=== PATIENT | female | born 1970 | race Caucasian/White ===

== ENCOUNTER 2018-04-07 18:57 | Inpatient (IN) | payer MEDICARE ==
[~2018-04-07] VITALS: Ht 172.7 cm; Wt 137.9 kg
[2018-04-07 19:57] LABS: BASOPHILS % (AUTO) 0.9 % (0.0-2.0); EOSINOPHILS % (AUTO) 1.1 % (0.0-3.0); HEMATOCRIT 39.1 % (37.0-47.0); HEMOGLOBIN 12.8 G/DL (12.0-16.0); LYMPHOCYTES % (AUTO) 30.8 % (20.0-45.0); MEAN CORPUSCULAR VOLUME 79 FL (80-99); MONOCYTES % (AUTO) 7.7 % (1.0-10.0); NEUTROPHILS % (AUTO) 59.5 % (45.0-75.0); PLATELET COUNT 310 K/UL (150-450); RED BLOOD COUNT 4.97 M/UL (4.20-5.40); RED CELL DISTRIBUTION WIDTH 14.2 % (11.6-14.8); WHITE BLOOD COUNT 12.5 K/UL (4.8-10.8)
[2018-04-07 20:22] LABS: ALANINE AMINOTRANSFERASE 51 U/L (12-78); ALBUMIN 3.3 G/DL (3.4-5.0); ALBUMIN/GLOBULIN RATIO 0.8 (1.0-2.7); ALKALINE PHOSPHATASE 74 U/L (46-116); ANION GAP 10 mmol/L (5-15); ASPARTATE AMINO TRANSFERASE 26 U/L (15-37); BILIRUBIN,TOTAL 0.4 MG/DL (0.2-1.0); BLOOD UREA NITROGEN 8 mg/dL (7-18); CARBON DIOXIDE 25 MMOL/L (21-32); CHLORIDE 104 MMOL/L (98-107); CREATININE 0.7 MG/DL (0.55-1.30); POTASSIUM 3.7 MMOL/L (3.5-5.1); SODIUM 139 MMOL/L (136-145)
[2018-04-07] MEDS ORDERED: Morphine Sulfate 4mg/ml Inj IVP ONE (20:30)
[2018-04-07] MEDS ORDERED: Pantoprazole Inj IVP ONE (20:30)
[2018-04-07] MEDS ORDERED: HydrOXYzine tab 25 MG TAB ORAL ONE (21:15)
[2018-04-07 21:23] LABS: APPEARANCE,URINE CLOUDY; BILIRUBIN, URINE NEGATIVE (NEGATIVE); GLUCOSE, URINE (UA) NEGATIVE (NEGATIVE); KETONES,URINE 1+ (NEGATIVE); LEUKOCYTE ESTERASE ,URINE 3+ (NEGATIVE); NITRITE,URINE NEGATIVE (NEGATIVE); PH,URINE 5 (4.5-8.0); PROTEIN,URINE 3+ (NEGATIVE); UROBILINOGEN,URINE NORMAL MG/DL (0.0-1.0)
[2018-04-07] MEDS ORDERED: DiphenhydrAMINE 50mg/ml Inj IVP ONE (21:30)
[2018-04-07 21:35] LABS: COLOR,URINE YELLOW
[2018-04-07 23:33] VITALS: BP 108/61
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
[2018-04-07] MEDS ORDERED: CITALOPRAM HBR10 M1 ORAL (23:38)
[2018-04-07] MEDS ORDERED: AMBIEN5 MG ORAL (23:38)
[2018-04-07] MEDS ORDERED: BUSPIRONE HCL5 M1 ORAL (23:38)
[2018-04-07] MEDS ORDERED: BIOTIN5 M2 PO (23:38)
[2018-04-07] MEDS ORDERED: TRUVADA 200 MG1 EAC1 ORAL (23:38)
[2018-04-07] MEDS ORDERED: cefTRIAXone 1 GM in D5W 55 ML IVPB ONE (23:45)
[2018-04-07] MEDS ORDERED: DiphenhydrAMINE 50mg/ml Inj ONE (23:45)
[2018-04-08] VITALS: BP 121/83
[2018-04-08] MEDS: D5 1/2NS w/KCl 20mEq 1,000 ML IV SCH ×3 (01:45→21:47)
[2018-04-08] MEDS ORDERED: DiphenhydrAMINE 50mg/ml Inj IVP PRN ×2 (02:00→12:45)
[2018-04-08] MEDS ORDERED: Zosyn 3.375gm/50ml Premix 50 ML IVPB SCH ×2 (03:00→08:00)
[2018-04-08] MEDS ORDERED: Zosyn 3.375gm inj ONE (03:07)
[2018-04-08] MEDS ORDERED: D5 1/2NS w/KCl 20mEq 1,000 ML IV ONE (03:14)
[2018-04-08] MEDS ORDERED: Vancomycin 1.5gm/D5W 250ml 250 ML IVPB SCH ×2 (03:30→09:00)
[2018-04-08 08:00] VITALS: BP 123/80
[2018-04-08] MEDS ORDERED: Piperacillin/Tazobactam 3.375 GM in D5W 110 ML IVPB SCH ×2 (08:00→14:00)
[2018-04-08] MEDS: Citalopram Hydrobromide 10mg Tab ORAL SCH (08:24)
[2018-04-08] MEDS: BusPIRone 5mg Tab ORAL SCH ×2 (08:24→17:41)
[2018-04-08] MEDS: Heparin 5000 units/ml inj SUBQ SCH ×3 (08:28→21:26)
[2018-04-08 08:32] LABS: BASOPHILS % (AUTO) 1.3 % (0.0-2.0); EOSINOPHILS % (AUTO) 2.5 % (0.0-3.0); HEMATOCRIT 40.6 % (37.0-47.0); HEMOGLOBIN 13.1 G/DL (12.0-16.0); LYMPHOCYTES % (AUTO) 30.5 % (20.0-45.0); MEAN CORPUSCULAR VOLUME 81 FL (80-99); MONOCYTES % (AUTO) 7.7 % (1.0-10.0); NEUTROPHILS % (AUTO) 57.9 % (45.0-75.0); PLATELET COUNT 283 K/UL (150-450); RED BLOOD COUNT 5.01 M/UL (4.20-5.40); RED CELL DISTRIBUTION WIDTH 14.2 % (11.6-14.8); WHITE BLOOD COUNT 11.7 K/UL (4.8-10.8)
[2018-04-08] MEDS: Morphine Sulfate 4mg/ml Inj IVP PRN ×2 (08:53→22:45)
[2018-04-08 08:56] LABS: ANION GAP 10 mmol/L (5-15); BLOOD UREA NITROGEN 7 mg/dL (7-18); CALCIUM 9.8 MG/DL (8.5-10.1); CARBON DIOXIDE 24 MMOL/L (21-32); CHLORIDE 106 MMOL/L (98-107); CREATININE 0.6 MG/DL (0.55-1.30); POTASSIUM 3.8 MMOL/L (3.5-5.1); SODIUM 140 MMOL/L (136-145)
[2018-04-08] MEDS ORDERED: ZOSYN MISC SCH (09:00)
--- NOTE | 2018-04-08 09:46 | History & Physical ---
History and Physical History & Physicial DICT # [id number] Jin Ferreira MD Apr 08, 2018 09:46
[2018-04-08 12:00] VITALS: BP 125/86
--- NOTE | 2018-04-08 12:55 | Consultation ---
History of Present Illness General Date patient seen: Apr 08, 2018 Chief Complaint: Abdominal Pain Present Illness HPI 47 year old female with multiple medical comorbidities including HIV, morbid obesity, s/p lap band removal and sleeve gastrectomy which was complicated by leak and s/p stent placemet and lap abdominal washout, migration of stent, persistent leak who has been in rehab facility anticipating next surgery for stent removal. Recently transferred form rehab [place] [facility] [place] of abdominal pain. in ED noted to have leukocytosis, possible purulent drain output, and abdominal pain. unfortunately given her size unable to perform CT scan. Surgery called to evaluate for abdominal pain. patient seen, chart reviewed, patient examined. states she feels okay now. subjective fevers. no n/v. states has not had oral diet for some time now. is patiently anticipating next surgery. Allergies: Coded Allergies: GABAPENTIN (Verified Allergy, Unknown, 04/07/18) NAPROXEN (Verified Allergy, Unknown, 04/07/18) SULFA (SULFONAMIDE ANTIBIOTICS) (Verified Allergy, Unknown, 04/07/18) SULFAMETHOXAZOLE (Verified Allergy, Unknown, 04/07/18) TRIMETHOPRIM (Verified Allergy, Unknown, 04/07/18) Medication History Scheduled Buspirone Hcl* (Buspirone Hcl*), 5 MG ORAL TWICE A DAY, (Reported) Citalopram Hydrobromide* (Citalopram Hbr*), 10 MG ORAL DAILY, (Reported) Emtricitabine/Tenofovir 200-300MG* (Truvada 200-300MG*), 1 TAB ORAL DAILY, ( Reported) Scheduled PRN Zolpidem Tartrate* (Ambien*), 5 MG ORAL BEDTIME PRN for Insomnia, (Reported) Miscellaneous Medications Biotin (Biotin), 5 MG PO, (Reported) Patient History History Provided By: Patient, Medical Record, PMD Healthcare decision maker Resuscitation status Advanced Directive on File Past Medical/Surgical History Past Medical/Surgical History: (1) Hyperthermia (2) Abdominal pain Review of Systems All Other Systems: negative except mentioned in HPI Physical Exam General Appearance: no apparent distress Lines, tubes and drains: PICC HEENT: mucous membranes moist, PERRL Neck: normal inspection Respiratory/Chest: normal breath sounds, no respiratory distress, no accessory muscle use Cardiovascular/Chest: normal rate Abdomen: normal bowel sounds, soft, other - obese, prior surgical scars healing , g tube, two víctor drains. Extremities: normal inspection Neurologic: alert, oriented x 3 Last 24 Hour Vital Signs Date Time Temp Pulse Resp B/P (MAP) Pulse Ox O2 Delivery O2 Flow Rate FiO2 04/08/18 09:20 97.7 04/08/18 08:53 97.7 04/08/18 08:00 98.7 99 20 123/80 (94) 97 98.7 04/08/18 00:45 Room Air 04/08/18 00:37 97.7 98 17 108/61 98 Room Air 97.7 04/08/18 00:00 99.2 105 19 121/83 (96) 97 99.2 04/07/18 23:33 97.7 98 17 108/61 98 Room Air 97.7 04/07/18 20:54 99.9 04/07/18 20:24 99.9 04/07/18 18:44 99.9 122 18 104/73 94 Room Air 99.9 Intake and Output 04/07/18 04/08/18 19:00 07:00 Intake Total 1000 ml Output Total 75 ml Balance 925 ml Intake IV Total 1000 ml Output Urine Total 75 ml # Voids 1 Laboratory Tests Test 04/07/18 19:25 04/07/18 21:00 04/08/18 07:25 White Blood Count 12.5 K/UL (4.8-10.8) H 11.7 K/UL (4.8-10.8) H Red Blood Count 4.97 M/UL (4.20-5.40) 5.01 M/UL (4.20-5.40) Hemoglobin 12.8 G/DL (12.0-16.0) 13.1 G/DL (12.0-16.0) Hematocrit 39.1 % (37.0-47.0) 40.6 % (37.0-47.0) Mean Corpuscular Volume 79 FL (80-99) L 81 FL (80-99) Mean Corpuscular Hemoglobin 25.8 PG (27.0-31.0) L 26.1 PG (27.0-31.0) L Mean Corpuscular Hemoglobin Concent 32.8 G/DL (32.0-36.0) 32.3 G/DL (32.0-36.0) Red Cell Distribution Width 14.2 % (11.6-14.8) 14.2 % (11.6-14.8) Platelet Count 310 K/UL (150-450) 283 K/UL (150-450) Mean Platelet Volume 6.1 FL (6.5-10.1) L 6.1 FL (6.5-10.1) L Neutrophils (%) (Auto) 59.5 % (45.0-75.0) 57.9 % (45.0-75.0) Lymphocytes (%) (Auto) 30.8 % (20.0-45.0) 30.5 % (20.0-45.0) Monocytes (%) (Auto) 7.7 % (1.0-10.0) 7.7 % (1.0-10.0) Eosinophils (%) (Auto) 1.1 % (0.0-3.0) 2.5 % (0.0-3.0) Basophils (%) (Auto) 0.9 % (0.0-2.0) 1.3 % (0.0-2.0) Prothrombin Time 10.5 SEC (9.30-11.50) Prothromb Time International Ratio 1.0 (0.9-1.1) Activated Partial Thromboplast Time 19 SEC (23-33) L Sodium Level 139 MMOL/L (136-145) 140 MMOL/L (136-145) Potassium Level 3.7 MMOL/L (3.5-5.1) 3.8 MMOL/L (3.5-5.1) Chloride Level 104 MMOL/L (98-107) 106 MMOL/L (98-107) Carbon Dioxide Level 25 MMOL/L (21-32) 24 MMOL/L (21-32) Anion Gap 10 mmol/L (5-15) 10 mmol/L (5-15) Blood Urea Nitrogen 8 mg/dL (7-18) 7 mg/dL (7-18) Creatinine 0.7 MG/DL (0.55-1.30) 0.6 MG/DL (0.55-1.30) Estimat Glomerular Filtration Rate > 60 mL/min (>60) > 60 mL/min (>60) Glucose Level 138 MG/DL (74-106) H 141 MG/DL (74-106) H Calcium Level 10.0 MG/DL (8.5-10.1) 9.8 MG/DL (8.5-10.1) Total Bilirubin 0.4 MG/DL (0.2-1.0) Aspartate Amino Transf (AST/SGOT) 26 U/L (15-37) Alanine Aminotransferase (ALT/SGPT) 51 U/L (12-78) Alkaline Phosphatase 74 U/L (46-116) Troponin I 0.000 ng/mL (0.000-0.056) Total Protein 7.7 G/DL (6.4-8.2) Albumin 3.3 G/DL (3.4-5.0) L Globulin 4.4 g/dL Albumin/Globulin Ratio 0.8 (1.0-2.7) L Lipase 258 U/L (73-393) Urine Color Yellow Urine Appearance Cloudy Urine pH 5 (4.5-8.0) Urine Specific [place] 1.020 (1.005-1.035) Urine Protein 3+ (NEGATIVE) H Urine Glucose (UA) Negative (NEGATIVE) Urine Ketones 1+ (NEGATIVE) H Urine Occult Blood 1+ (NEGATIVE) H Urine Nitrite Negative (NEGATIVE) Urine Bilirubin Negative (NEGATIVE) Urine Urobilinogen Normal MG/DL (0.0-1.0) Urine Leukocyte Esterase 3+ (NEGATIVE) H Urine RBC 2-4 /HPF (0 - 2) H Urine WBC 10-15 /HPF (0 - 2) H Urine Squamous Epithelial Cells Many /LPF (NONE/OCC) H Urine Calcium Oxalate Crystals Many /LPF (NONE) Urine Bacteria Moderate /HPF (NONE) H Height (Feet): 5 Height (Inches): 8.00 Weight (Pounds): 305 Medications Current Medications Medications (Trade) Dose Ordered Sig/Elizabet Route PRN Reason Start Time Stop Time Status Last Admin Dose Admin Acetaminophen (Tylenol) 650 mg Q6H PRN ORAL Mild Pain/Temp > 100.5 04/08/18 01:45 05/08/18 01:44 Buspirone HCl (Buspar) 5 mg BID ORAL 04/08/18 09:00 05/08/18 08:59 04/08/18 08:24 Citalopram Hydrobromide (celeXA) 10 mg DAILY ORAL 04/08/18 09:00 05/08/18 08:59 04/08/18 08:24 Dextrose/ Electrolytes 1,000 ml @ 100 mls/hr Q10H IV 04/08/18 01:45 05/08/18 01:44 04/08/18 08:24 Diphenhydramine HCl (Benadryl) 25 mg Q4H PRN IVP Itching 04/08/18 12:45 05/08/18 12:44 Emtricitabine/ Tenofovir (Truvada 200/ 300mg) 1 tab DAILY ORAL 04/08/18 09:00 05/08/18 08:59 04/08/18 08:24 Heparin Sodium (Porcine) (Heparin 5000 units/ml) 5,000 units EVERY 12 HOURS SUBQ 04/08/18 09:00 05/08/18 08:59 04/08/18 08:28 Lopinavir/ Ritonavir (Kaletra) 2 tab Q12HR ORAL 04/08/18 21:00 05/08/18 20:59 UNV Morphine Sulfate (Morphine Sulfate) 1 mg Q4H PRN IVP For mild pain 1-3 04/08/18 01:45 04/15/18 01:44 Morphine Sulfate (Morphine Sulfate) 2 mg Q4H PRN IVP For moderate pain 4-6 04/08/18 01:45 04/15/18 01:44 Morphine Sulfate (Morphine Sulfate) 4 mg Q4H PRN IVP For Severe Pain 7-04/08/18 01:45 04/15/18 01:44 04/08/18 08:53 Multivitamins (Multivitamins) 1 tab DAILY ORAL 04/08/18 09:00 05/08/18 08:59 04/08/18 08:24 Non-Formulary Medication (Non-Formulary Med) 1 ea DAILY ORAL 04/08/18 09:00 05/08/18 08:59 UNV Ondansetron HCl (Zofran) 4 mg EVERY 4 HOURS PRN IVP Nausea & Vomiting 04/08/18 01:45 05/08/18 01:44 04/08/18 08:53 Piperacillin Sod/ Tazobactam Sod 3.375 gm/Dextrose 110 ml @ 27.5 mls/hr Q8H IVPB 04/08/18 14:00 04/15/18 13:59 Vancomycin HCl (Vanco rx to dose) 1 ea DAILY MISC 04/08/18 09:00 05/08/18 08:59 Vancomycin HCl/ Dextrose 250 ml @ 166.667 mls/hr Q8H IVPB 04/08/18 09:00 04/13/18 08:59 04/08/18 10:35 Zolpidem Tartrate (Ambien) 5 mg HSPRN PRN ORAL Insomnia 04/08/18 01:45 04/15/18 01:44 Assessment/Plan Problem List: (1) Abdominal pain Assessment & Plan: 47M complicated surgical history. currently in recovery after prior surgery. prior lap band with removal, sleeve gastrectomy complicated by leak and still with possible leak. has stents in place which from report have migrated. is planned to have surgery in april 2018 for stent removal. currently doing well. mild leukocytosis improving. UTI. abd exam without peritonitis or significant abnormality. medial drain with possible tube feeds vs purulent output. lateral drain without minimal output feeding tube in place -okay to resume tube feeds -okay to resume prior meds crushed and given through g tube. -pt/ot -iv abx -records reviewed. will reach out to her primary surgeon to discuss care. thank you for this consultation. will follow with recs no acute surgical intervention planned. ICD Codes: R10.9 - Unspecified abdominal pain SNOMED: [id number] Qualifiers: Qualified Codes: R10.84 - Generalized abdominal pain Status: unchanged Blu Hinojosa Apr 08, 2018 12:55
[2018-04-08] MEDS ORDERED: DiphenhydrAMINE 50mg/ml Inj IVP STA (14:10)
[2018-04-08 16:00] VITALS: BP 118/82
--- NOTE | 2018-04-08 17:32 | Infectious Diseases Prog Note ---
Assessment/Plan Assessment/Plan Full consult dictated: A) 1) uti, leukocytosis, fevers, ? sepsis, ? abdominal wall wound drainage 2) pmh and psh noted 3) HIV, ? cd4/viral load 4) allergies - ? vancomycin or zosyn, sulfa, naproxen, gabapentin P) 1) cefepime and flagyl 2) check urine culture, labs, cd4 3) surgery f/u, imaging per surgery 4) anti-retrovirals - kaletra and truvada 5) thank you Subjective Allergies: Coded Allergies: GABAPENTIN (Verified Allergy, Unknown, 04/07/18) NAPROXEN (Verified Allergy, Unknown, 04/07/18) SULFA (SULFONAMIDE ANTIBIOTICS) (Verified Allergy, Unknown, 04/07/18) SULFAMETHOXAZOLE (Verified Allergy, Unknown, 04/07/18) TRIMETHOPRIM (Verified Allergy, Unknown, 04/07/18) Objective Vital Signs Last 24 Hour Vital Signs Date Time Temp Pulse Resp B/P (MAP) Pulse Ox O2 Delivery O2 Flow Rate FiO2 04/08/18 09:20 97.7 04/08/18 08:53 97.7 04/08/18 08:00 98.7 99 20 123/80 (94) 97 98.7 04/08/18 00:45 Room Air 04/08/18 00:37 97.7 98 17 108/61 98 Room Air 97.7 04/08/18 00:00 99.2 105 19 121/83 (96) 97 99.2 04/07/18 23:33 97.7 98 17 108/61 98 Room Air 97.7 04/07/18 20:54 99.9 04/07/18 20:24 99.9 04/07/18 18:44 99.9 122 18 104/73 94 Room Air 99.9 Height (Feet): 5 Height (Inches): 8.00 Weight (Pounds): 305 Laboratory Tests Test 04/07/18 19:25 04/07/18 21:00 04/08/18 07:25 White Blood Count 12.5 K/UL (4.8-10.8) H 11.7 K/UL (4.8-10.8) H Red Blood Count 4.97 M/UL (4.20-5.40) 5.01 M/UL (4.20-5.40) Hemoglobin 12.8 G/DL (12.0-16.0) 13.1 G/DL (12.0-16.0) Hematocrit 39.1 % (37.0-47.0) 40.6 % (37.0-47.0) Mean Corpuscular Volume 79 FL (80-99) L 81 FL (80-99) Mean Corpuscular Hemoglobin 25.8 PG (27.0-31.0) L 26.1 PG (27.0-31.0) L Mean Corpuscular Hemoglobin Concent 32.8 G/DL (32.0-36.0) 32.3 G/DL (32.0-36.0) Red Cell Distribution Width 14.2 % (11.6-14.8) 14.2 % (11.6-14.8) Platelet Count 310 K/UL (150-450) 283 K/UL (150-450) Mean Platelet Volume 6.1 FL (6.5-10.1) L 6.1 FL (6.5-10.1) L Neutrophils (%) (Auto) 59.5 % (45.0-75.0) 57.9 % (45.0-75.0) Lymphocytes (%) (Auto) 30.8 % (20.0-45.0) 30.5 % (20.0-45.0) Monocytes (%) (Auto) 7.7 % (1.0-10.0) 7.7 % (1.0-10.0) Eosinophils (%) (Auto) 1.1 % (0.0-3.0) 2.5 % (0.0-3.0) Basophils (%) (Auto) 0.9 % (0.0-2.0) 1.3 % (0.0-2.0) Prothrombin Time 10.5 SEC (9.30-11.50) Prothromb Time International Ratio 1.0 (0.9-1.1) Activated Partial Thromboplast Time 19 SEC (23-33) L Sodium Level 139 MMOL/L (136-145) 140 MMOL/L (136-145) Potassium Level 3.7 MMOL/L (3.5-5.1) 3.8 MMOL/L (3.5-5.1) Chloride Level 104 MMOL/L (98-107) 106 MMOL/L (98-107) Carbon Dioxide Level 25 MMOL/L (21-32) 24 MMOL/L (21-32) Anion Gap 10 mmol/L (5-15) 10 mmol/L (5-15) Blood Urea Nitrogen 8 mg/dL (7-18) 7 mg/dL (7-18) Creatinine 0.7 MG/DL (0.55-1.30) 0.6 MG/DL (0.55-1.30) Estimat Glomerular Filtration Rate > 60 mL/min (>60) > 60 mL/min (>60) Glucose Level 138 MG/DL (74-106) H 141 MG/DL (74-106) H Calcium Level 10.0 MG/DL (8.5-10.1) 9.8 MG/DL (8.5-10.1) Total Bilirubin 0.4 MG/DL (0.2-1.0) Aspartate Amino Transf (AST/SGOT) 26 U/L (15-37) Alanine Aminotransferase (ALT/SGPT) 51 U/L (12-78) Alkaline Phosphatase 74 U/L (46-116) Troponin I 0.000 ng/mL (0.000-0.056) Total Protein 7.7 G/DL (6.4-8.2) Albumin 3.3 G/DL (3.4-5.0) L Globulin 4.4 g/dL Albumin/Globulin Ratio 0.8 (1.0-2.7) L Lipase 258 U/L (73-393) Urine Color Yellow Urine Appearance Cloudy Urine pH 5 (4.5-8.0) Urine Specific [place] 1.020 (1.005-1.035) Urine Protein 3+ (NEGATIVE) H Urine Glucose (UA) Negative (NEGATIVE) Urine Ketones 1+ (NEGATIVE) H Urine Occult Blood 1+ (NEGATIVE) H Urine Nitrite Negative (NEGATIVE) Urine Bilirubin Negative (NEGATIVE) Urine Urobilinogen Normal MG/DL (0.0-1.0) Urine Leukocyte Esterase 3+ (NEGATIVE) H Urine RBC 2-4 /HPF (0 - 2) H Urine WBC 10-15 /HPF (0 - 2) H Urine Squamous Epithelial Cells Many /LPF (NONE/OCC) H Urine Calcium Oxalate Crystals Many /LPF (NONE) Urine Bacteria Moderate /HPF (NONE) H Current Medications Medications (Trade) Dose Ordered Sig/Elizabet Route PRN Reason Start Time Stop Time Status Last Admin Dose Admin Acetaminophen (Tylenol) 650 mg Q6H PRN ORAL Mild Pain/Temp > 100.5 04/08/18 01:45 05/08/18 01:44 Buspirone HCl (Buspar) 5 mg BID ORAL 04/08/18 09:00 05/08/18 08:59 04/08/18 08:24 Cefepime HCl 2 gm/ Dextrose 110 ml @ 220 mls/hr EVERY 12 HOURS IVPB 04/08/18 18:00 04/15/18 17:59 Citalopram Hydrobromide (celeXA) 10 mg DAILY ORAL 04/08/18 09:00 05/08/18 08:59 04/08/18 08:24 Dextrose/ Electrolytes 1,000 ml @ 100 mls/hr Q10H IV 04/08/18 01:45 05/08/18 01:44 04/08/18 08:24 Diphenhydramine HCl (Benadryl) 50 mg Q4H PRN IVP Itching 04/08/18 18:00 05/08/18 17:59 Emtricitabine/ Tenofovir (Truvada 200/ 300mg) 1 tab DAILY ORAL 04/08/18 09:00 05/08/18 08:59 04/08/18 08:24 Heparin Sodium (Porcine) (Heparin 5000 units/ml) 5,000 units EVERY 12 HOURS SUBQ 04/08/18 09:00 05/08/18 08:59 04/08/18 08:28 Lopinavir/ Ritonavir (Kaletra) 2 tab Q12HR ORAL 04/08/18 21:00 05/08/18 20:59 Metronidazole 100 ml @ 100 mls/hr Q8HR IV 04/08/18 20:00 04/15/18 19:59 Morphine Sulfate (Morphine Sulfate) 1 mg Q4H PRN IVP For mild pain 1-3 04/08/18 01:45 04/15/18 01:44 Morphine Sulfate (Morphine Sulfate) 2 mg Q4H PRN IVP For moderate pain 4-6 04/08/18 01:45 04/15/18 01:44 Morphine Sulfate (Morphine Sulfate) 4 mg Q4H PRN IVP For Severe Pain 7-10 /8/18 01:45 04/15/18 01:44 04/08/18 08:53 Multivitamins (Multivitamins) 1 tab DAILY ORAL 04/08/18 09:00 05/08/18 08:59 04/08/18 08:24 Non-Formulary Medication (Non-Formulary Med) 1 ea DAILY ORAL 04/08/18 09:00 05/08/18 08:59 UNV Ondansetron HCl (Zofran) 4 mg EVERY 4 HOURS PRN IVP Nausea & Vomiting 04/08/18 01:45 05/08/18 01:44 04/08/18 08:53 Zolpidem Tartrate (Ambien) 5 mg HSPRN PRN ORAL Insomnia 04/08/18 01:45 04/15/18 01:44 Carolina Covington MD Apr 08, 2018 17:31
[2018-04-08] MEDS: Cefepime HCl 2 GM in D5W 110 ML IVPB SCH (17:41)
[2018-04-08] MEDS: DiphenhydrAMINE 50mg/ml Inj IVP PRN ×2 (17:52→21:23)
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
--- NOTE | 2018-04-08 18:33 | Cardiology Report ---
APPROVED REPORT EKG Measurement Heart [id number] Sinus tachycardia Inferior infarct, age undetermined Anterolateral infarct, age undetermined Abnormal ECG
[2018-04-08 20:00] VITALS: BP 137/78
--- NOTE | 2018-04-08 20:30 | History and Physical Report ---
DATE OF ADMISSION: 04/07/2018 CHIEF COMPLAINT: Abdominal pain. HISTORY OF PRESENT ILLNESS: The patient is a very unfortunate 47-year-old female with multiple medical problems including HIV, super morbid obesity status post lap band removal and sleeve gastrectomy January 16, 2018 in [place] complicated by leak and stent placement with laparoscopic abdominal washout, migration of stents who was transferred to [facility] for higher level of care February 02, 2018, underwent multiple procedures including EGD with stent removal and pigtail placement February 15, 2018, laparoscopic washout, EGD and stent replacement February 21, 2018. EGD with endoscopic suturing 02/23/2018. She was discharged to [facility] on 03/13/2018. She had been strict NPO on tube feeds via J-tube, which she was tolerating and her drain output was doing well. She was then transferred back to the hospital and to multiple rehabs. She has been having ongoing issues with residual leakage and deconditioning. Overnight, she was transferred from [facility] rehabilitation. She was actually at [facility], their air conditioning went out and subsequently she was sent to [facility]. She was transferred with left upper quadrant pain. T-max 99.9 degrees, vital signs stable, and saturating well on room air. White count of 12.5 on admission and 11.7 now. She has evidence of a urinary tract infection as well. The remainder of her laboratories were normal except for mild protein-calorie malnutrition. She denies any fevers, chills, headache, dizziness, nausea, or vomiting. She has left upper quadrant pain. She has had bowel output. She denies any other complaints. PAST MEDICAL HISTORY: 1. Morbid obesity with a BMI of 46.4. 2. Lap band in 2010 status post revision and removal in December of this year with sleeve gastrectomy complicated by a leak, stent placement, abdominal washout and multiple postoperative problems now with drains and a J-tube in place. 3. Diabetes. 4. Diabetic neuropathy. 5. HIV (CD4 count 946 on November 2017). 6. Degenerative joint disease. ALLERGIES: Gabapentin, naproxen, sulfa, sulfamethiazole, Bactrim. MEDICATIONS: Prior to admission medications reviewed. Current medications reviewed. SOCIAL HISTORY: She denies tobacco, alcohol, or drug use. FAMILY HISTORY: Noncontributory. REVIEW OF SYSTEMS: Negative other than history of present illness. PHYSICAL EXAMINATION: GENERAL: She is a morbidly obese female, in no acute distress, awake, alert, and oriented x3. VITAL SIGNS: Temperature is 97.7 degrees, pulse 98, blood pressure 108/61, respiratory rate 17, and saturating 98% on room air. HEENT: Normocephalic and atraumatic. Oropharynx is clear with moist mucous membranes. NECK: Supple without lymphadenopathy or JVD. CHEST: Clear but distant. HEART: Regular rate rhythm. ABDOMEN: Obese. Two surgical drains are in place, J-tube is in place. There is foul-smelling discharge from the drains and J-tube. She has two superficial wounds that were dressed. She has a large panniculate. EXTREMITIES: No cyanosis, clubbing, or edema. She had of her skin. LABORATORY AND DIAGNOSTIC DATA: Ancillary data, sodium 140, potassium 3.8, chloride 106, bicarbonate 24, BUN 7, creatinine 0.6, and glucose 141. Calcium 9.8. Total bilirubin 0.4. AST 26, ALT 51, and alkaline phosphatase 74. Troponin negative. Total protein 7.7, albumin 3.3, globulin 4.4. White count 11.7, hemoglobin 13.1, and platelet count 283. INR 1. Urinalysis, 3+ protein 1+, ketones, 1+ blood, 3+ leukocyte esterase, and moderate bacteria. ASSESSMENT: The patient is a 47-year-old female with a history of morbid obesity status post lap band in 2010 with revision and sleeve gastrectomy in 2013 with multiple postoperative complications arising from a leak, now with two drains in place and a GJ tube presenting with left upper quadrant pain, leukocytosis concern for intra-abdominal infection. Unfortunately because of her size, she is unable to fit in the CT scanner at [place]. Surgery has been consulted who will evaluate the patient. She is on broad-spectrum antibiotics. Based on her previous cultures, Infectious Diseases service will evaluate the patient as well. I have also requested a Renal consult for possible initiation of TPN. PROBLEM LIST: 1. Likely intra-abdominal infection. 2. History of lap band in 2010 status post revision and sleeve gastrectomy in December 2017 with multiple postoperative complications and repeat laparoscopies with two intra-abdominal drains and GJ tube at this time with concern for intra-abdominal infection. 3. Morbid obesity. 4. HIV. 5. Diabetes. 6. Diabetic neuropathy. 7. Degenerative disk disease. 8. Anxiety TREATMENT PLAN: 1. Admit to hospital. 2. Start broad-spectrum antibiotics (vancomycin, Zosyn day #2). Followup cultures. 3. Infectious disease consultation. 4. General surgery consultation. 5. The patient will not fit in the CT scanner. 6. Pain control/supportive care. 7. IV fluid hydration. 8. NPO until evaluated by surgery. 9. Nephrology evaluation for possible initiation of TPN. 10. DVT prophylaxis, heparin subcutaneous. 11. We will reoncile and review prior to admission medications. 12. PT/OT. 13. Discharge planning, I anticipate the patient will in the hospital for two to three days and then will return to rehabilitation center for continued therapy. Jin Ferreira M.D. DR: YARELI JOB#: [id number] CC:
[2018-04-08] MEDS: Flagyl 500mg/NS 100ml Pre-Mix IV SCH (21:22)
[2018-04-08] MEDS: Zolpidem 5mg tab ORAL PRN (21:23)
[2018-04-08] MEDS: KALETRA ORAL SCH (21:23)
--- NOTE | 2018-04-09 03:30 | Consultation ---
DATE OF CONSULTATION: 04/08/2018 INFECTIOUS DISEASE CONSULTATION CONSULTING PHYSICIAN: Carolina Covington M.D. ATTENDING PHYSICIAN: Jin Ferreira M.D. REFERRING PHYSICIAN: Jin Ferreira M.D. REASON FOR CONSULTATION: Urinary tract infection, possible sepsis, fevers, and leukocytosis, unclear possible abdominal wall wound infection. REASON FOR ADMISSION: Abdominal pain. HISTORY OF PRESENT ILLNESS: This is a very pleasant 47-year-old female, who comes in to [facility] with abdominal pain and fevers and leukocytosis. Workup shows that she has urinary tract infection with 3+ leukocyte esterase and moderate bacteria seen and 10-15 white blood cells. The patient also has abdominal pain and CT scan could not be done, questionable planned MRI for this patient. The patient was seen by Surgery because of abdominal pain. Of note, the patient has a history of complicated surgical history. She is status post lap band with removal, sleeve gastrectomy and leak. The patient is status post stent and washout for the leak and drains. The patient could have migrated stents also. Unclear if the patient has persistent leak. Of note, also the patient has been discussing with nursing staff that around the drainage tube, there could be pus coming from the wounds, which she has on her abdomen. The patient also has history of HIV and is on Kaletra and Truvada. The patient was started on Zosyn and vancomycin, however, she had a reaction to one of the antibiotics, so she is currently on cefepime and Flagyl. Infectious Disease consultation is requested for antibiotic management of this patient with UTI, possible sepsis, and possible abdominal infection. PAST MEDICAL HISTORY: The patient has a past medical history of HIV, history of obesity, history of lap band surgery, and history of depression. She is on antidepressant medications. T-cell count and viral load are unknown. She does have a history of diabetes, it looks like. It is unclear if she has history of hypertension. She is not on hypertensive medications at this time, but looks like she does have a history of diabetes with blood sugar being elevated at this time of 141. History of lap band gastrectomy and stent placement, history of leak and history of sleeve gastrectomy, morbid obesity, diabetes, and depression. No history of hypertension mentioned. History of HIV as discussed, unclear T-cell count and viral load. ALLERGIES: Gabapentin, naproxen, sulfa, possible Zosyn versus vancomycin allergy, also sulfamethoxazole and trimethoprim. MEDICATIONS: Upon reviewing the MAR, she is on following medications. She is on Truvada. She is on Kaletra. She is on Benadryl, cefepime, and Flagyl. She was on Zosyn and vancomycin. She discontinued because of possible reaction. She is on multivitamin. She is on BuSpar. She is on heparin. She is on Celexa. She is on morphine and Zofran. Outside medications noted and reconciliated. SOCIAL HISTORY: Negative for smoking, alcohol, or drug abuse. FAMILY HISTORY: Noncontributory. Negative for exposure to tuberculosis or cancer. REVIEW OF SYSTEMS: CONSTITUTIONAL: The patient has generalized fatigue, but no focal weakness. She is able to ambulate. She came in with low-grade fevers 99.9 degrees. No chills at this time. She felt that she is also dehydrated coming in and did have urinary symptoms. No weight loss mentioned or night sweats. HEAD AND NECK: No head pain. No neck pain. No neck stiffness. No change in vision. CARDIAC: No chest pain or palpitations. GASTROINTESTINAL: She has no nausea, vomiting, or diarrhea. She does have abdominal discomfort and pain. PULMONARY: No significant congestion or shortness of breath. No hemoptysis or secretions. SKIN: She had a drug reaction to either Zosyn or vancomycin with maculopapular rash. She has itching also. GENITOURINARY: She has dysuria, frequency, and change in color of her urine. NEUROLOGIC: No seizures. PHYSICAL EXAMINATION: VITAL SIGNS: On admission, temperature 99.9 degrees, currently temperature is 97.7 degrees, pulse rate 99, respiratory rate 20, blood pressure 120/80, and saturation 97%. GENERAL: Alert and responsive, no acute distress. HEAD AND NECK: Oral exam, no thrush. Eyes, no icterus. No JVD. Normocephalic. No facial droop. No neck stiffness. Neck is supple. HEART: Regular. No obvious gallop or murmur. No friction rub. ABDOMEN: Soft. Positive bowel sounds. Some discomfort and pain, but no rebound. LUNGS: Clear bilaterally. No rhonchi or rales. SKIN: She has a maculopapular rash in the chest and arms after she took vancomycin and Zosyn, consistent with drug rash. She also has peeling of the upper extremity and lower extremity, however, she said that it is secondary to possible contrast reaction in the past. I am not sure about that actually. With regards to her wounds on the incisions, there is no pus that I could see, but on discussing with nursing when she pressed earlier today on the HAYDEE drain site, in addition to the HAYDEE drainage, she has, actually there was possible pus coming out, but currently I do not see at this time. MUSCULOSKELETAL: No evidence of septic arthritis. Legs without cellulitis. PERIPHERAL VASCULAR: No cyanosis or gangrene. GENITOURINARY: No Lim. No CVA tenderness. LINE SITES: Without phlebitis. NEUROLOGIC: Responsive, alert, and oriented x3. No weakness. LABORATORY AND DIAGNOSTIC DATA: Creatinine is 0.6. LFTs were noted. White count 11.7, hemoglobin 13.1, white count on admission 12.5. Urinalysis had 3+ leukocyte esterase, 10 to 15 white blood cells. Cultures including urine cultures are pending. No wound culture is obtained. There is no drainage that I seen now. UA, 3+ leukocyte esterase. White count 12.5 on admission and now 11.7 and hemoglobin 13.1. Imaging studies pending. ASSESSMENT AND PLAN: 1. The patient has urinary tract infection, positive UA, leukocytosis versus systemic inflammatory response syndrome criteria, possible sepsis, leukocytosis, and fevers. At this time, we will continue with cefepime if she tolerates it. Check urine culture results. Check followup labs. Continue cefepime for complicated urinary tract infection and sepsis pending final urine culture. 2. Unclear if she has an abdominal wall infected wound or deeper infection at this time. The patient is being followed by Surgery. The patient currently is on cefepime and Flagyl. She had a reaction to vancomycin, which was held. Continue antibiotics, cefepime and Flagyl. Surgery follow up. Defer imaging to Surgery, and we will follow up on the laboratories. 3. Human immunodeficiency virus. Continue Truvada and Kaletra. We will check CD4 count. 4. Morbid obesity. 5. Depression. 6. Diabetes. 7. No history of hypertension mentioned. 8. Blood sugar treatment per primary. 9. Hyperglycemia. 10. History of lap band procedure, sleeve gastrectomy removal leak, stent placement, possible migrating stent and washout. 11. Allergies, possibly Zosyn or vancomycin, gabapentin, naproxen, and sulfa drugs. 12. Social history is negative. 13. Family history is noncontributory. 14. MAR was noted. 15. Case discussed with RN. 16. Continue treatment per primary consultants. 17. Case was discussed with the patient and questions were answered. Carolina Covington M.D. DR: JO ANN JOB#: [id number] CC:
[2018-04-09] MEDS: DiphenhydrAMINE 50mg/ml Inj IVP PRN ×5 (04:44→22:40)
[2018-04-09] MEDS: Morphine Sulfate 4mg/ml Inj IVP PRN (05:31)
[2018-04-09] MEDS: Flagyl 500mg/NS 100ml Pre-Mix IV SCH ×3 (06:17→21:24)
--- NOTE | 2018-04-09 09:09 | General Progress Note ---
Assessment/Plan Assessment/Plan ASSESSMENT: The patient is a 47-year-old female with a history of morbid obesity status post lap band in 2010 with revision and sleeve gastrectomy in 2013 with multiple postoperative complications arising from a leak, now with two drains in place and a GJ tube presenting with left upper quadrant pain, leukocytosis concern for intra-abdominal infection. Unfortunately because of her size, she is unable to fit in the CT scanner at [place]. PROBLEM LIST: 1. Likely intra-abdominal infection. 2. Gram negative bacillus UTI 3. History of lap band in 2010 status post revision and sleeve gastrectomy in December 2017 with multiple postoperative complications and repeat laparoscopies with two intra-abdominal drains and GJ tube at this time with concern for intra-abdominal infection. 4. Morbid obesity. 5. HIV. 6. Diabetes. 7. Diabetic neuropathy. 8. Degenerative disk disease. 9. Anxiety 10. Rash, ? drug reaction TREATMENT PLAN: -Abx (Cefepime) per ID, F/U Cx's -cART -F/U surgery recs -PRN Benadryl and Atarax -The patient will not fit in the CT scanner. -Pain control/supportive care. -IV fluid hydration. -NPO, will resume TF's when ok with surgery -Appreciate renal eval, if prolonged NPO will need to start TPN -DVT prophylaxis, heparin subcutaneous. -PT/OT. -Discharge planning, I anticipate the patient will in the hospital for two to three days and then will return to rehabilitation center for continued therapy. Subjective Allergies: Coded Allergies: GABAPENTIN (Verified Allergy, Unknown, 04/07/18) NAPROXEN (Verified Allergy, Unknown, 04/07/18) PIPERACILLIN (Verified Allergy, Unknown, Itching, 04/08/18) flushing of face and neck SULFA (SULFONAMIDE ANTIBIOTICS) (Verified Allergy, Unknown, 04/07/18) SULFAMETHOXAZOLE (Verified Allergy, Unknown, 04/07/18) TAZOBACTAM (Verified Allergy, Unknown, Itching, 04/08/18) flushing of face and neck TRIMETHOPRIM (Verified Allergy, Unknown, 04/07/18) VANCOMYCIN (Verified Allergy, Unknown, Itching, 04/08/18) Subjective Tm 101.9, VSS, O2 needs stable + F, no CP, no CP/SOB, no change in abd pain, (mainly LUQ), + N, no V, no BM, + gas + rash, believes it's 2/2 Abx, + itching Refused initiation of TF's UCx with GNB Objective Last 24 Hour Vital Signs Date Time Temp Pulse Resp B/P (MAP) Pulse Ox O2 Delivery O2 Flow Rate FiO2 04/08/18 22:24 100.6 04/08/18 21:25 101.9 04/08/18 21:00 Room Air 04/08/18 20:00 101.9 97 19 137/78 (97) 97 101.9 04/08/18 16:00 98.8 99 20 118/82 (94) 97 98.8 04/08/18 12:00 98.3 89 20 125/86 (99) 98 98.3 04/08/18 09:20 97.7 Intake and Output 04/08/18 04/09/18 19:00 07:00 # Voids 1 2 Height (Feet): 5 Height (Inches): 8.00 Weight (Pounds): 305 General Appearance: obese - morbidly EENT: normal ENT inspection Neck: non-tender Cardiovascular: normal peripheral pulses, normal rate, regular rhythm Respiratory/Chest: chest wall non-tender, lungs clear - but distant, normal breath sounds, no respiratory distress, no accessory muscle use Abdomen: normal bowel sounds, tender - diffuse but mainly LUQ, other - drain x 2, GJ, wounds dressed Edema: no edema noted Arm (L), no edema noted Arm (R), no edema noted Leg (L), no edema noted Leg (R), no edema noted Pedal (L), no edema noted Pedal (R), no edema noted Generalized Skin: rash - diffuse erythematous MP rash Jin Ferreira MD Apr 09, 2018 09:09
[2018-04-09] MEDS: D5 1/2NS w/KCl 20mEq 1,000 ML IV SCH ×3 (09:58→22:34)
[2018-04-09] MEDS: Cefepime HCl 2 GM in D5W 110 ML IVPB SCH ×2 (09:58→20:44)
[2018-04-09] MEDS: KALETRA ORAL SCH ×2 (09:59→20:45)
[2018-04-09] MEDS: BusPIRone 5mg Tab ORAL SCH ×2 (09:59→17:39)
[2018-04-09] MEDS: Citalopram Hydrobromide 10mg Tab ORAL SCH (09:59)
[2018-04-09] MEDS: Morphine Sulfate 2mg/ml Inj IVP PRN ×3 (10:00→21:25)
[2018-04-09] MEDS: Heparin 5000 units/ml inj SUBQ SCH ×2 (10:01→20:41)
--- NOTE | 2018-04-09 10:26 | Nephrology Progress Note ---
Assessment/Plan Assessment/Plan 1. Prior lap band with removal - sleeve gastrectomy complicated by leak and still with possible leak. Stents in place - surgery evaluated and TFs started - electrolytes stable - will follow from distance and if TPN required will initiate and monitor/manage Subjective Date patient seen: Apr 09, 2018 Time patient seen: 10:23 ROS Limited/Unobtainable: No Gastrointestinal/Abdominal: Reports: nausea, vomiting Allergies: Coded Allergies: GABAPENTIN (Verified Allergy, Unknown, 04/07/18) NAPROXEN (Verified Allergy, Unknown, 04/07/18) PIPERACILLIN (Verified Allergy, Unknown, Itching, 04/08/18) flushing of face and neck SULFA (SULFONAMIDE ANTIBIOTICS) (Verified Allergy, Unknown, 04/07/18) SULFAMETHOXAZOLE (Verified Allergy, Unknown, 04/07/18) TAZOBACTAM (Verified Allergy, Unknown, Itching, 04/08/18) flushing of face and neck TRIMETHOPRIM (Verified Allergy, Unknown, 04/07/18) VANCOMYCIN (Verified Allergy, Unknown, Itching, 04/08/18) All Systems: reviewed and negative except above Subjective Patient in no overt distress Objective Last 24 Hour Vital Signs Date Time Temp Pulse Resp B/P (MAP) Pulse Ox O2 Delivery O2 Flow Rate FiO2 04/09/18 10:00 100.6 04/08/18 22:24 100.6 04/08/18 21:25 101.9 04/08/18 21:00 Room Air 04/08/18 20:00 101.9 97 19 137/78 (97) 97 101.9 04/08/18 16:00 98.8 99 20 118/82 (94) 97 98.8 04/08/18 12:00 98.3 89 20 125/86 (99) 98 98.3 Intake and Output 04/08/18 04/09/18 19:00 07:00 # Voids 1 2 Height (Feet): 5 Height (Inches): 8.00 Weight (Pounds): 305 General Appearance: no apparent distress, alert EENT: PERRL/EOMI, normal ENT inspection Neck: non-tender, normal alignment Cardiovascular: normal rate, regular rhythm Respiratory/Chest: lungs clear, normal breath sounds Abdomen: non tender, soft Edema: no edema noted Arm (L), no edema noted Arm (R), no edema noted Leg (L), no edema noted Leg (R), no edema noted Pedal (L), no edema noted Pedal (R), no edema noted Generalized Jerry Abdul M.D. Apr 09, 2018 10:26
[2018-04-09 11:04] LABS: BASOPHILS % (AUTO) 1.1 % (0.0-2.0); EOSINOPHILS % (AUTO) 4.1 % (0.0-3.0); HEMATOCRIT 46.4 % (37.0-47.0); HEMOGLOBIN 14.4 G/DL (12.0-16.0); LYMPHOCYTES % (AUTO) 20.1 % (20.0-45.0); MEAN CORPUSCULAR VOLUME 81 FL (80-99); MONOCYTES % (AUTO) 5.7 % (1.0-10.0); NEUTROPHILS % (AUTO) 69.1 % (45.0-75.0); PLATELET COUNT 229 K/UL (150-450); RED BLOOD COUNT 5.76 M/UL (4.20-5.40); RED CELL DISTRIBUTION WIDTH 14.3 % (11.6-14.8); WHITE BLOOD COUNT 15.1 K/UL (4.8-10.8)
[2018-04-09 12:00] VITALS: BP 105/64
[2018-04-09 12:10] LABS: PHOSPHORUS 4.7 MG/DL (2.5-4.9)
[2018-04-09 12:13] LABS: ANION GAP 14 mmol/L (5-15); BLOOD UREA NITROGEN 10 mg/dL (7-18); CARBON DIOXIDE 20 MMOL/L (21-32); CHLORIDE 104 MMOL/L (98-107); CREATININE 1.1 MG/DL (0.55-1.30); POTASSIUM 3.8 MMOL/L (3.5-5.1); SODIUM 138 MMOL/L (136-145)
--- NOTE | 2018-04-09 13:43 | Infectious Diseases Prog Note ---
Assessment/Plan Assessment/Plan ASSESSMENT AND PLAN: 1. gram neg uti, sepsis, leukocytosis fevers, likely abdominal infection, hx of gastric bypass surgery with complications, stent, drains, feeding tube - cefepime and flagyl - check urine culture - watch labs, wbc and temps - d/w surgery who discussed case with previous surgeon and favors treating acute uti/infection and the patient to follow up with previous surgeon for further mgt 2. drug rash - zosyn and vancomycin both held, supportive care 3. Human immunodeficiency virus. Continue Truvada and Kaletra - f/u on cd4 count, pt to f/y with outpatient HIV md 4. Morbid obesity. 5. Depression. 6. Diabetes. 7. No history of hypertension mentioned. 8. Blood sugar treatment per primary. 9. Hyperglycemia. 10. History of lap band procedure, sleeve gastrectomy removal leak, stent placement, possible migrating stent and washout. 11. Allergies, possibly Zosyn or vancomycin, gabapentin, naproxen, and sulfa drugs. 12. Social history is negative. 13. Family history is noncontributory. 14. MAR was noted. 15. Case discussed with RN. 16. Continue treatment per primary consultants. 17. Case was discussed with the patient and questions were answered. Subjective Constitutional: Reports: fever, fatigue HEENT: Reports: other - no billingsley, no change in vision ; Denies: dysphagia Respiratory: Denies: shortness of breath Cardiovascular: Denies: chest pain Gastrointestinal/Abdominal: Denies: nausea, vomiting, diarrhea Genitourinary: Reports: other - no berad, no cva pain Neurologic: Denies: headache Psychiatric: Denies: depression Skin: Reports: rash Hematologic: Denies: bleeding Musculoskeletal: Denies: pain Allergies: Coded Allergies: GABAPENTIN (Verified Allergy, Unknown, 04/07/18) NAPROXEN (Verified Allergy, Unknown, 04/07/18) PIPERACILLIN (Verified Allergy, Unknown, Itching, 04/08/18) flushing of face and neck SULFA (SULFONAMIDE ANTIBIOTICS) (Verified Allergy, Unknown, 04/07/18) SULFAMETHOXAZOLE (Verified Allergy, Unknown, 04/07/18) TAZOBACTAM (Verified Allergy, Unknown, Itching, 04/08/18) flushing of face and neck TRIMETHOPRIM (Verified Allergy, Unknown, 04/07/18) VANCOMYCIN (Verified Allergy, Unknown, Itching, 04/08/18) Objective Vital Signs Last 24 Hour Vital Signs Date Time Temp Pulse Resp B/P (MAP) Pulse Ox O2 Delivery O2 Flow Rate FiO2 04/09/18 12:00 99.5 72 18 105/64 (78) 98 99.5 04/09/18 10:30 100.6 04/09/18 10:00 100.6 04/09/18 08:10 Room Air 04/08/18 22:24 100.6 04/08/18 21:25 101.9 04/08/18 21:00 Room Air 04/08/18 20:00 101.9 97 19 137/78 (97) 97 101.9 04/08/18 16:00 98.8 99 20 118/82 (94) 97 98.8 Height (Feet): 5 Height (Inches): 8.00 Weight (Pounds): 305 General Appearance: no acute distress HEENT: normocephalic, atraumatic, anicteric, mucous membranes moist Respiratory/Chest: lungs clear, normal breath sounds, no respiratory distress, no accessory muscle use Cardiovascular: normal rate, regular rhythm Abdomen: normal bowel sounds, soft, non tender, no organomegaly, other - + drain with significant drainage, no pus from old abdominal incisions/wounds Genitourinary: other - no beard Extremities: no cyanosis Skin: rash - rash without change 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, no motor/sensory deficits, alert, responsive Lymphatic: no neck adenopathy Musculoskeletal: no effusion Objective no imaging Microbiology Date/Time Source Procedure Growth Status 04/07/18 21:00 Urine,Clean Catch Urine Culture - Preliminary Gram Negative Bacillus 1 Resulted Laboratory Tests Test 04/09/18 10:45 White Blood Count Pending Red Blood Count 5.76 M/UL (4.20-5.40) H Hemoglobin 14.4 G/DL (12.0-16.0) Hematocrit 46.4 % (37.0-47.0) Mean Corpuscular Volume 81 FL (80-99) Mean Corpuscular Hemoglobin 25.0 PG (27.0-31.0) L Mean Corpuscular Hemoglobin Concent 30.9 G/DL (32.0-36.0) L Red Cell Distribution Width 14.3 % (11.6-14.8) Platelet Count 229 K/UL (150-450) Mean Platelet Volume 6.1 FL (6.5-10.1) L Neutrophils (%) (Auto) 69.1 % (45.0-75.0) Lymphocytes (%) (Auto) 20.1 % (20.0-45.0) Monocytes (%) (Auto) 5.7 % (1.0-10.0) Eosinophils (%) (Auto) 4.1 % (0.0-3.0) H Basophils (%) (Auto) 1.1 % (0.0-2.0) Lymphocytes Pending Sodium Level 138 MMOL/L (136-145) Potassium Level 3.8 MMOL/L (3.5-5.1) Chloride Level 104 MMOL/L (98-107) Carbon Dioxide Level 20 MMOL/L (21-32) L Anion Gap 14 mmol/L (5-15) Blood Urea Nitrogen 10 mg/dL (7-18) Creatinine 1.1 MG/DL (0.55-1.30) # Estimat Glomerular Filtration Rate 53.5 mL/min (>60) Glucose Level 153 MG/DL (74-106) H Calcium Level 9.0 MG/DL (8.5-10.1) Phosphorus Level 4.7 MG/DL (2.5-4.9) Magnesium Level 1.4 MG/DL (1.8-2.4) L Percent CD3 Cells Pending Absolute CD3 Count Pending Percent CD4 Cells Pending Absolute CD4 Count Pending T-Lymphocyte CD4/CD8 Ratio Pending Percent CD8 Cells Pending Absolute CD8 Count Pending Current Medications Medications (Trade) Dose Ordered Sig/Elizabet Route PRN Reason Start Time Stop Time Status Last Admin Dose Admin Acetaminophen (Tylenol) 650 mg Q6H PRN ORAL Mild Pain/Temp > 100.5 04/08/18 01:45 05/08/18 01:44 04/08/18 21:25 Buspirone HCl (Buspar) 5 mg BID ORAL 04/08/18 09:00 05/08/18 08:59 04/09/18 09:59 Cefepime HCl 2 gm/ Dextrose 110 ml @ 220 mls/hr EVERY 12 HOURS IVPB 04/08/18 18:00 04/15/18 17:59 04/09/18 09:58 Citalopram Hydrobromide (celeXA) 10 mg DAILY ORAL 04/08/18 09:00 05/08/18 08:59 04/09/18 09:59 Dextrose/ Electrolytes 1,000 ml @ 100 mls/hr Q10H IV 04/08/18 01:45 05/08/18 01:44 04/09/18 09:58 Diphenhydramine HCl (Benadryl) 50 mg Q4H PRN IVP Itching 04/08/18 18:00 05/08/18 17:59 04/09/18 10:00 Emtricitabine/ Tenofovir (Truvada 200/ 300mg) 1 tab DAILY ORAL 04/08/18 09:00 05/08/18 08:59 04/09/18 09:59 Heparin Sodium (Porcine) (Heparin 5000 units/ml) 5,000 units EVERY 12 HOURS SUBQ 04/08/18 09:00 05/08/18 08:59 04/09/18 10:01 Hydroxyzine HCl (Vistaril) 10 mg Q6H PRN ORAL Itching 04/08/18 18:30 05/08/18 18:29 Lopinavir/ Ritonavir (Kaletra) 2 tab Q12HR ORAL 04/08/18 21:00 05/08/18 20:59 04/09/18 09:59 Metronidazole 100 ml @ 100 mls/hr Q8HR IV 04/08/18 20:00 04/15/18 19:59 04/09/18 06:17 Morphine Sulfate (Morphine Sulfate) 1 mg Q4H PRN IVP For mild pain 1-3 04/08/18 01:45 04/15/18 01:44 04/09/18 10:00 Morphine Sulfate (Morphine Sulfate) 2 mg Q4H PRN IVP For moderate pain 4-6 04/08/18 01:45 04/15/18 01:44 Morphine Sulfate (Morphine Sulfate) 4 mg Q4H PRN IVP For Severe Pain 7-10 04/08/18 01:45 04/15/18 01:44 04/09/18 05:31 Multivitamins (Multivitamins) 1 tab DAILY ORAL 04/08/18 09:00 05/08/18 08:59 04/09/18 09:59 Ondansetron HCl (Zofran) 4 mg EVERY 4 HOURS PRN IVP Nausea & Vomiting 04/08/18 01:45 05/08/18 01:44 04/08/18 08:53 Zolpidem Tartrate (Ambien) 5 mg HSPRN PRN ORAL Insomnia 04/08/18 01:45 04/15/18 01:44 04/08/18 21:23 Carolina Covington MD Apr 09, 2018 13:43
--- NOTE | 2018-04-09 14:10 | General Surgery Progress Note ---
General Surgery-Progress Note Subjective Additional Comments no acute events. no pain. comfortable. Objective Last 24 Hour Vital Signs Date Time Temp Pulse Resp B/P (MAP) Pulse Ox O2 Delivery O2 Flow Rate FiO2 04/09/18 12:00 99.5 72 18 105/64 (78) 98 99.5 04/09/18 10:30 100.6 04/09/18 10:00 100.6 04/09/18 08:10 Room Air 04/08/18 22:24 100.6 04/08/18 21:25 101.9 04/08/18 21:00 Room Air 04/08/18 20:00 101.9 97 19 137/78 (97) 97 101.9 04/08/18 16:00 98.8 99 20 118/82 (94) 97 98.8 I&O Intake and Output 04/08/18 04/09/18 19:00 07:00 # Voids 1 2 Wound: clean Drains: ariel Cardiovascular: RSR Respiratory: clear Abdomen: soft, non-tender, present bowel sounds Extremities: no cyanosis Laboratory Tests Test 04/09/18 10:45 White Blood Count Pending Red Blood Count 5.76 M/UL (4.20-5.40) H Hemoglobin 14.4 G/DL (12.0-16.0) Hematocrit 46.4 % (37.0-47.0) Mean Corpuscular Volume 81 FL (80-99) Mean Corpuscular Hemoglobin 25.0 PG (27.0-31.0) L Mean Corpuscular Hemoglobin Concent 30.9 G/DL (32.0-36.0) L Red Cell Distribution Width 14.3 % (11.6-14.8) Platelet Count 229 K/UL (150-450) Mean Platelet Volume 6.1 FL (6.5-10.1) L Neutrophils (%) (Auto) 69.1 % (45.0-75.0) Lymphocytes (%) (Auto) 20.1 % (20.0-45.0) Monocytes (%) (Auto) 5.7 % (1.0-10.0) Eosinophils (%) (Auto) 4.1 % (0.0-3.0) H Basophils (%) (Auto) 1.1 % (0.0-2.0) Lymphocytes Pending Sodium Level 138 MMOL/L (136-145) Potassium Level 3.8 MMOL/L (3.5-5.1) Chloride Level 104 MMOL/L (98-107) Carbon Dioxide Level 20 MMOL/L (21-32) L Anion Gap 14 mmol/L (5-15) Blood Urea Nitrogen 10 mg/dL (7-18) Creatinine 1.1 MG/DL (0.55-1.30) # Estimat Glomerular Filtration Rate 53.5 mL/min (>60) Glucose Level 153 MG/DL (74-106) H Calcium Level 9.0 MG/DL (8.5-10.1) Phosphorus Level 4.7 MG/DL (2.5-4.9) Magnesium Level 1.4 MG/DL (1.8-2.4) L Percent CD3 Cells Pending Absolute CD3 Count Pending Percent CD4 Cells Pending Absolute CD4 Count Pending T-Lymphocyte CD4/CD8 Ratio Pending Percent CD8 Cells Pending Absolute CD8 Count Pending Plan Problems: (1) Abdominal pain Assessment & Plan: 47M complicated surgical history. currently in recovery after prior surgery. prior lap band with removal, sleeve gastrectomy complicated by leak and still with possible leak. has stents in place which from report have migrated. is planned to have surgery in april 2018 for stent removal. currently doing well. mild leukocytosis improving. UTI. abd exam without peritonitis or significant abnormality. medial drain with possible tube feeds vs purulent output. lateral drain without minimal output feeding tube in place leukocytosis this AM. otherwise unchanged. Spoke with patients primary Surgeon at [facility]. history and plan confirmed. has plans to study patient for leak in a few weeks, then stent removal, then surgery if necessary. would like to keep patient NPO for now and on J-tube feeds only. aware of drainage from drains. has been on IV Abx for >6 week course prior and has been off abx for some time now stable. was informed of current UTI. -tube feeds to goal -Strict NPO -resume prior meds crushed and given through g tube. -pt/ot -iv abx for treatment of UTI thank you for this consultation. will follow with recs no acute surgical intervention planned. Blu Hinojosa Apr 09, 2018 14:10
[2018-04-09 16:00] VITALS: BP 116/66
[2018-04-09 20:00] VITALS: BP 110/65
[2018-04-09] MEDS: Zolpidem 5mg tab ORAL PRN (21:25)
[2018-04-10] MEDS: DiphenhydrAMINE 50mg/ml Inj IVP PRN ×4 (07:30→19:53)
[2018-04-10] MEDS: Morphine Sulfate 4mg/ml Inj IVP PRN ×4 (07:31→19:53)
[2018-04-10] MEDS: Flagyl 500mg/NS 100ml Pre-Mix IV SCH ×3 (07:39→22:00)
[2018-04-10 08:00] VITALS: BP 111/72
[2018-04-10] MEDS: Heparin 5000 units/ml inj SUBQ SCH ×2 (09:56→21:00)
[2018-04-10] MEDS: Cefepime HCl 2 GM in D5W 110 ML IVPB SCH ×2 (09:57→19:53)
[2018-04-10] MEDS: Citalopram Hydrobromide 10mg Tab ORAL SCH (09:57)
[2018-04-10] MEDS: BusPIRone 5mg Tab ORAL SCH ×2 (09:57→17:46)
[2018-04-10] MEDS: KALETRA ORAL SCH ×2 (09:57→23:39)
[2018-04-10 10:20] LABS: BASOPHILS % (AUTO) 0.7 % (0.0-2.0); EOSINOPHILS % (AUTO) 9.6 % (0.0-3.0); HEMOGLOBIN 11.9 G/DL (12.0-16.0); LYMPHOCYTES % (AUTO) 17.6 % (20.0-45.0); MEAN CORPUSCULAR VOLUME 80 FL (80-99); MONOCYTES % (AUTO) 9.7 % (1.0-10.0); NEUTROPHILS % (AUTO) 62.4 % (45.0-75.0); PLATELET COUNT 187 K/UL (150-450); RED BLOOD COUNT 4.76 M/UL (4.20-5.40); RED CELL DISTRIBUTION WIDTH 14.7 % (11.6-14.8); WHITE BLOOD COUNT 8.7 K/UL (4.8-10.8)
[2018-04-10 10:21] LABS: ANION GAP 5 mmol/L (5-15); BLOOD UREA NITROGEN 8 mg/dL (7-18); CALCIUM 8.6 MG/DL (8.5-10.1); CARBON DIOXIDE 23 MMOL/L (21-32); CHLORIDE 107 MMOL/L (98-107); CREATININE 0.7 MG/DL (0.55-1.30); POTASSIUM 3.8 MMOL/L (3.5-5.1); SODIUM 135 MMOL/L (136-145)
--- NOTE | 2018-04-10 10:49 | General Surgery Progress Note ---
General Surgery-Progress Note Subjective Symptoms: improved, pain absent Additional Comments tolerating feeds. no acute events. labs improved. Objective Last 24 Hour Vital Signs Date Time Temp Pulse Resp B/P (MAP) Pulse Ox O2 Delivery O2 Flow Rate FiO2 04/10/18 08:01 99.5 04/10/18 08:00 97.8 100 20 111/72 (85) 98 97.8 04/10/18 07:31 99.5 04/09/18 21:55 99.5 04/09/18 21:25 99.5 04/09/18 21:00 Room Air 04/09/18 20:00 99.3 99 19 110/65 (80) 99.3 04/09/18 16:41 99.5 04/09/18 16:11 99.5 04/09/18 16:00 100.6 122 20 116/66 (83) 100.6 04/09/18 12:00 99.5 72 18 105/64 (78) 98 99.5 I&O Intake and Output 04/09/18 04/10/18 19:00 07:00 Intake Total 70 ml Output Total 50 ml Balance 70 ml -50 ml Tube Feeding 70 ml Drainage Total 50 ml # Voids 4 2 # Bowel Movements 1 Wound: clean, dry Drains: ariel Cardiovascular: RSR Respiratory: clear Abdomen: soft, non-tender, present bowel sounds Extremities: edema, no cyanosis Laboratory Tests Test 04/10/18 10:00 White Blood Count 8.7 K/UL (4.8-10.8) Red Blood Count 4.76 M/UL (4.20-5.40) Hemoglobin 11.9 G/DL (12.0-16.0) L Hematocrit 38.0 % (37.0-47.0) Mean Corpuscular Volume 80 FL (80-99) Mean Corpuscular Hemoglobin 24.9 PG (27.0-31.0) L Mean Corpuscular Hemoglobin Concent 31.2 G/DL (32.0-36.0) L Red Cell Distribution Width 14.7 % (11.6-14.8) Platelet Count 187 K/UL (150-450) Mean Platelet Volume 6.3 FL (6.5-10.1) L Neutrophils (%) (Auto) 62.4 % (45.0-75.0) Lymphocytes (%) (Auto) 17.6 % (20.0-45.0) L Monocytes (%) (Auto) 9.7 % (1.0-10.0) Eosinophils (%) (Auto) 9.6 % (0.0-3.0) H Basophils (%) (Auto) 0.7 % (0.0-2.0) Sodium Level 135 MMOL/L (136-145) L Potassium Level 3.8 MMOL/L (3.5-5.1) Chloride Level 107 MMOL/L (98-107) Carbon Dioxide Level 23 MMOL/L (21-32) Anion Gap 5 mmol/L (5-15) Blood Urea Nitrogen 8 mg/dL (7-18) Creatinine 0.7 MG/DL (0.55-1.30) Estimat Glomerular Filtration Rate > 60 mL/min (>60) Glucose Level 151 MG/DL (74-106) H Calcium Level 8.6 MG/DL (8.5-10.1) Plan Problems: (1) Abdominal pain Assessment & Plan: 47M complicated surgical history. currently in recovery after prior surgery. prior lap band with removal, sleeve gastrectomy complicated by leak and still with possible leak. has stents in place which from report have migrated. is planned to have surgery in april 2018 for stent removal. currently doing well. mild leukocytosis improving. UTI. abd exam without peritonitis or significant abnormality. medial drain with possible tube feeds vs purulent output. lateral drain without minimal output feeding tube in place Leukocytosis resolved. Spoke with patients primary Surgeon at [facility]. history and plan confirmed. has plans to study patient for leak in a few weeks, then stent removal, then surgery if necessary. would like to keep patient NPO for now and on J-tube feeds only. aware of drainage from drains. has been on IV Abx for >6 week course prior and has been off abx for some time now stable. was informed of current UTI. -tube feeds to goal -Strict NPO -resume prior meds crushed and given through g tube. -pt/ot -iv abx for treatment of UTI thank you for this consultation. will follow with recs no acute surgical intervention planned. Blu Hinojosa Apr 10, 2018 10:49
[2018-04-10] MEDS ORDERED: Cathflo Alteplase 2mg Inj INJ ONE (14:00)
--- NOTE | 2018-04-10 15:51 | Infectious Diseases Prog Note ---
Assessment/Plan Assessment/Plan ASSESSMENT AND PLAN: 1. gram neg uti/strep uti, sepsis, leukocytosis fevers, likely abdominal infection, hx of gastric bypass surgery with complications, stent, drains, feeding tube - cefepime and flagyl - fevers and leukocytosis better - check urine culture final - watch labs, repeat ua and culture - d/w surgery who discussed case with previous surgeon and favors treating acute uti/infection and the patient to follow up with previous surgeon for further mgt 2. drug rash - zosyn and vancomycin both held, supportive care 3. Human immunodeficiency virus. Continue Truvada and Kaletra - f/u on cd4 count, pt to f/y with outpatient HIV md 4. Morbid obesity. 5. Depression. 6. Diabetes. 7. No history of hypertension mentioned. 8. Blood sugar treatment per primary. 9. Hyperglycemia. 10. History of lap band procedure, sleeve gastrectomy removal leak, stent placement, possible migrating stent and washout. 11. Allergies, possibly Zosyn or vancomycin, gabapentin, naproxen, and sulfa drugs. 12. Social history is negative. 13. Family history is noncontributory. 14. MAR was noted. 15. Case discussed with RN. 16. Continue treatment per primary consultants. 17. Case was discussed with the patient and questions were answered. Subjective Constitutional: Denies: fever HEENT: Denies: congestion Respiratory: Denies: shortness of breath Cardiovascular: Denies: chest pain Gastrointestinal/Abdominal: Denies: nausea, vomiting, diarrhea Genitourinary: Reports: other - no beard; Denies: dysuria, hematuria Neurologic: Denies: headache Psychiatric: Denies: depression Skin: Denies: rash Hematologic: Denies: bleeding Musculoskeletal: Denies: pain Allergies: Coded Allergies: GABAPENTIN (Verified Allergy, Unknown, 04/07/18) NAPROXEN (Verified Allergy, Unknown, 04/07/18) PIPERACILLIN (Verified Allergy, Unknown, Itching, 04/08/18) flushing of face and neck SULFA (SULFONAMIDE ANTIBIOTICS) (Verified Allergy, Unknown, 04/07/18) SULFAMETHOXAZOLE (Verified Allergy, Unknown, 04/07/18) TAZOBACTAM (Verified Allergy, Unknown, Itching, 04/08/18) flushing of face and neck TRIMETHOPRIM (Verified Allergy, Unknown, 04/07/18) VANCOMYCIN (Verified Allergy, Unknown, Itching, 04/08/18) Objective Vital Signs Last 24 Hour Vital Signs Date Time Temp Pulse Resp B/P (MAP) Pulse Ox O2 Delivery O2 Flow Rate FiO2 04/10/18 15:31 99.5 04/10/18 12:01 99.5 04/10/18 11:31 99.5 04/10/18 08:45 Room Air 04/10/18 08:00 97.8 100 20 111/72 (85) 98 97.8 04/10/18 07:31 99.5 04/09/18 21:55 99.5 04/09/18 21:25 99.5 04/09/18 21:00 Room Air 04/09/18 20:00 99.3 99 19 110/65 (80) 99.3 04/09/18 16:41 99.5 04/09/18 16:11 99.5 04/09/18 16:00 100.6 122 20 116/66 (83) 100.6 Height (Feet): 5 Height (Inches): 8.00 Weight (Pounds): 305 General Appearance: no acute distress HEENT: normocephalic, atraumatic, anicteric, mucous membranes moist Respiratory/Chest: lungs clear, normal breath sounds, no respiratory distress, no accessory muscle use Cardiovascular: normal rate, regular rhythm, no gallop/murmur, no JVD Abdomen: normal bowel sounds, soft, non tender, no organomegaly, non distended Genitourinary: other - no beard, no cva pain Extremities: no cyanosis Skin: no rash 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, 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, oriented x 3, responsive Lymphatic: no neck adenopathy Musculoskeletal: no effusion Objective no imaging Microbiology Date/Time Source Procedure Growth Status 04/07/18 21:00 Urine,Clean Catch Urine Culture - Preliminary Gram Negative Bacillus 1 Streptococcus Species Resulted Laboratory Tests Test 04/10/18 10:00 White Blood Count 8.7 K/UL (4.8-10.8) Red Blood Count 4.76 M/UL (4.20-5.40) Hemoglobin 11.9 G/DL (12.0-16.0) L Hematocrit 38.0 % (37.0-47.0) Mean Corpuscular Volume 80 FL (80-99) Mean Corpuscular Hemoglobin 24.9 PG (27.0-31.0) L Mean Corpuscular Hemoglobin Concent 31.2 G/DL (32.0-36.0) L Red Cell Distribution Width 14.7 % (11.6-14.8) Platelet Count 187 K/UL (150-450) Mean Platelet Volume 6.3 FL (6.5-10.1) L Neutrophils (%) (Auto) 62.4 % (45.0-75.0) Lymphocytes (%) (Auto) 17.6 % (20.0-45.0) L Monocytes (%) (Auto) 9.7 % (1.0-10.0) Eosinophils (%) (Auto) 9.6 % (0.0-3.0) H Basophils (%) (Auto) 0.7 % (0.0-2.0) Sodium Level 135 MMOL/L (136-145) L Potassium Level 3.8 MMOL/L (3.5-5.1) Chloride Level 107 MMOL/L (98-107) Carbon Dioxide Level 23 MMOL/L (21-32) Anion Gap 5 mmol/L (5-15) Blood Urea Nitrogen 8 mg/dL (7-18) Creatinine 0.7 MG/DL (0.55-1.30) Estimat Glomerular Filtration Rate > 60 mL/min (>60) Glucose Level 151 MG/DL (74-106) H Calcium Level 8.6 MG/DL (8.5-10.1) Current Medications Medications (Trade) Dose Ordered Sig/Elizabet Route PRN Reason Start Time Stop Time Status Last Admin Dose Admin Acetaminophen (Tylenol) 650 mg Q6H PRN ORAL Mild Pain/Temp > 100.5 04/08/18 01:45 05/08/18 01:44 04/08/18 21:25 Buspirone HCl (Buspar) 5 mg BID ORAL 04/08/18 09:00 05/08/18 08:59 04/10/18 09:57 Cefepime HCl 2 gm/ Dextrose 110 ml @ 220 mls/hr EVERY 12 HOURS IVPB 04/08/18 18:00 04/15/18 17:59 04/10/18 09:57 Citalopram Hydrobromide (celeXA) 10 mg DAILY ORAL 04/08/18 09:00 05/08/18 08:59 04/10/18 09:57 Diphenhydramine HCl (Benadryl) 50 mg Q4H PRN IVP Itching 04/08/18 18:00 05/08/18 17:59 04/10/18 15:38 Emtricitabine/ Tenofovir (Truvada 200/ 300mg) 1 tab DAILY ORAL 04/08/18 09:00 05/08/18 08:59 04/10/18 09:57 Famotidine (Pepcid) 20 mg BID ORAL 04/10/18 18:00 05/10/18 17:59 Heparin Sodium (Porcine) (Heparin 5000 units/ml) 5,000 units EVERY 12 HOURS SUBQ 04/08/18 09:00 05/08/18 08:59 04/10/18 09:56 Hydroxyzine HCl (Vistaril) 10 mg Q6H PRN ORAL Itching 04/08/18 18:30 05/08/18 18:29 04/09/18 21:44 Lopinavir/ Ritonavir (Kaletra) 2 tab Q12HR ORAL 04/08/18 21:00 05/08/18 20:59 04/10/18 09:57 Metronidazole 100 ml @ 100 mls/hr Q8HR IV 04/08/18 20:00 04/15/18 19:59 04/10/18 14:11 Morphine Sulfate (Morphine Sulfate) 1 mg Q4H PRN IVP For mild pain 1-3 04/08/18 01:45 04/15/18 01:44 04/09/18 16:11 Morphine Sulfate (Morphine Sulfate) 2 mg Q4H PRN IVP For moderate pain 4-6 04/08/18 01:45 04/15/18 01:44 04/09/18 21:25 Morphine Sulfate (Morphine Sulfate) 4 mg Q4H PRN IVP For Severe Pain 7-04/08/18 01:45 04/15/18 01:44 04/10/18 15:31 Multivitamins (Multivitamins) 1 tab DAILY ORAL 04/08/18 09:00 05/08/18 08:59 04/10/18 09:57 Ondansetron HCl (Zofran) 4 mg EVERY 4 HOURS PRN IVP Nausea & Vomiting 04/08/18 01:45 05/08/18 01:44 04/08/18 08:53 Zolpidem Tartrate (Ambien) 5 mg HSPRN PRN ORAL Insomnia 04/08/18 01:45 04/15/18 01:44 04/09/18 21:25 Carolina Covington MD Apr 10, 2018 15:51
[2018-04-10 16:00] VITALS: BP 105/67
[2018-04-10 20:00] VITALS: BP 128/75
--- NOTE | 2018-04-10 22:47 | General Progress Note ---
Assessment/Plan Assessment/Plan ASSESSMENT: The patient is a 47-year-old female with a history of morbid obesity status post lap band in 2010 with revision and sleeve gastrectomy in 2013 with multiple postoperative complications arising from a leak, now with two drains in place and a GJ tube presenting with left upper quadrant pain, leukocytosis concern for intra-abdominal infection. Unfortunately because of her size, she is unable to fit in the CT scanner at [facility]. PROBLEM LIST: 1. Likely intra-abdominal infection. 2. Gram negative bacillus UTI 3. History of lap band in 2010 status post revision and sleeve gastrectomy in December 2017 with multiple postoperative complications and repeat laparoscopies with two intra-abdominal drains and GJ tube at this time with concern for intra-abdominal infection. 4. Morbid obesity. 5. HIV. 6. Diabetes. 7. Diabetic neuropathy. 8. Degenerative disk disease. 9. Anxiety 10. Rash, ? drug reaction TREATMENT PLAN: -Abx (cefepime) per ID, F/U Cx's -cART -F/U surgery recs -PRN Benadryl and Atarax -The patient will not fit in the CT scanner. -Pain control/supportive care. -D/C IVF as nasreen TF"s -NPO, TF's as tolerated -Appreciate renal eval, if prolonged NPO will need to start TPN -DVT prophylaxis, heparin subcutaneous. -PT/OT. -Discharge planning, I anticipate the patient will in the hospital for 1-2 more days and then will return to rehabilitation center for continued therapy. Subjective Allergies: Coded Allergies: GABAPENTIN (Verified Allergy, Unknown, 04/07/18) NAPROXEN (Verified Allergy, Unknown, 04/07/18) PIPERACILLIN (Verified Allergy, Unknown, Itching, 04/08/18) flushing of face and neck SULFA (SULFONAMIDE ANTIBIOTICS) (Verified Allergy, Unknown, 04/07/18) SULFAMETHOXAZOLE (Verified Allergy, Unknown, 04/07/18) TAZOBACTAM (Verified Allergy, Unknown, Itching, 04/08/18) flushing of face and neck TRIMETHOPRIM (Verified Allergy, Unknown, 04/07/18) VANCOMYCIN (Verified Allergy, Unknown, Itching, 04/08/18) Subjective AFVSS, O2 needs stable, OOB, tolf TF's, still with rash, no F/C, pain better, no NV Objective Last 24 Hour Vital Signs Date Time Temp Pulse Resp B/P (MAP) Pulse Ox O2 Delivery O2 Flow Rate FiO2 04/10/18 20:23 100.0 04/10/18 20:00 100.0 116 18 128/75 (92) 97 100.0 04/10/18 19:53 99.5 04/10/18 16:00 98.8 95 20 105/67 (80) 100 98.8 04/10/18 15:31 99.5 04/10/18 11:31 99.5 04/10/18 08:45 Room Air 04/10/18 08:00 97.8 100 20 111/72 (85) 98 97.8 04/10/18 07:31 99.5 Intake and Output 04/09/18 04/10/18 19:00 07:00 Intake Total 70 ml Output Total 50 ml Balance 70 ml -50 ml Tube Feeding 70 ml Drainage Total 50 ml # Voids 4 2 # Bowel Movements 1 Laboratory Tests 04/10/18 10:00: White Blood Count 8.7, Red Blood Count 4.76, Hemoglobin 11.9L, Hematocrit 38.0, Mean Corpuscular Volume 80, Mean Corpuscular Hemoglobin 24.9L, Mean Corpuscular Hemoglobin Concent 31.2L, Red Cell Distribution Width 14.7, Platelet Count 187, Mean Platelet Volume 6.3L, Neutrophils (%) (Auto) 62.4, Lymphocytes (%) (Auto) 17.6L, Monocytes (%) (Auto) 9.7, Eosinophils (%) (Auto) 9.6H, Basophils (%) ( Auto) 0.7, Sodium Level 135L, Potassium Level 3.8, Chloride Level 107, Carbon Dioxide Level 23, Anion Gap 5, Blood Urea Nitrogen 8, Creatinine 0.7, Estimat Glomerular Filtration Rate > 60, Glucose Level 151H, Calcium Level 8.6 Height (Feet): 5 Height (Inches): 8.00 Weight (Pounds): 305 General Appearance: no apparent distress, obese EENT: normal ENT inspection Neck: non-tender, normal alignment Cardiovascular: normal peripheral pulses, normal rate, regular rhythm Respiratory/Chest: chest wall non-tender, lungs clear, normal breath sounds, no respiratory distress Abdomen: normal bowel sounds, non tender, soft, no organomegaly, no mass, other - drains and GJ intact Edema: no edema noted Arm (L), no edema noted Arm (R), no edema noted Leg (L), no edema noted Leg (R), no edema noted Pedal (L), no edema noted Pedal (R), no edema noted Generalized Jin Ferreira MD Apr 10, 2018 22:47
[2018-04-10] MEDS: Zolpidem 5mg tab ORAL PRN (23:27)
[2018-04-11] MEDS: Morphine Sulfate 4mg/ml Inj IVP PRN ×5 (00:01→22:10)
[2018-04-11] MEDS: Flagyl 500mg/NS 100ml Pre-Mix IV SCH ×3 (08:12→22:09)
[2018-04-11 09:05] LABS: APPEARANCE,URINE CLEAR; BILIRUBIN, URINE NEGATIVE (NEGATIVE); GLUCOSE, URINE (UA) NEGATIVE (NEGATIVE); KETONES,URINE 1+ (NEGATIVE); LEUKOCYTE ESTERASE ,URINE 3+ (NEGATIVE); NITRITE,URINE NEGATIVE (NEGATIVE); PH,URINE 5 (4.5-8.0); PROTEIN,URINE 2+ (NEGATIVE); UROBILINOGEN,URINE NORMAL MG/DL (0.0-1.0)
[2018-04-11 09:14] LABS: COLOR,URINE YELLOW
[2018-04-11] MEDS: DiphenhydrAMINE 50mg/ml Inj IVP PRN ×4 (09:15→22:09)
[2018-04-11] MEDS: Cefepime HCl 2 GM in D5W 110 ML IVPB SCH ×2 (09:15→22:09)
[2018-04-11] MEDS: BusPIRone 5mg Tab ORAL SCH ×2 (09:16→18:06)
[2018-04-11] MEDS: Citalopram Hydrobromide 10mg Tab ORAL SCH (09:17)
[2018-04-11] MEDS: KALETRA ORAL SCH ×2 (09:18→22:09)
[2018-04-11] MEDS: Heparin 5000 units/ml inj SUBQ SCH ×2 (09:20→21:00)
[2018-04-11 16:00] VITALS: BP 102/65
--- NOTE | 2018-04-11 17:41 | General Surgery Progress Note ---
General Surgery-Progress Note Subjective Additional Comments no acute events. Objective Last 24 Hour Vital Signs Date Time Temp Pulse Resp B/P (MAP) Pulse Ox O2 Delivery O2 Flow Rate FiO2 04/11/18 16:00 98.9 88 18 102/65 (77) 97 98.9 04/11/18 14:32 100.0 04/11/18 14:02 100.0 04/11/18 09:14 100.0 04/11/18 08:00 Room Air 04/10/18 21:00 Room Air 04/10/18 20:00 100.0 116 18 128/75 (92) 97 100.0 04/10/18 19:53 99.5 I&O Intake and Output 04/10/18 04/11/18 19:00 07:00 Intake Total 210 ml Balance 210 ml Intake IV Total 210 ml # Voids 3 2 Wound: clean Drains: ariel Cardiovascular: RSR Respiratory: clear Abdomen: soft, non-tender Extremities: no cyanosis Laboratory Tests Test 04/11/18 08:13 Urine Color Yellow Urine Appearance Clear Urine pH 5 (4.5-8.0) Urine Specific [place] 1.025 (1.005-1.035) Urine Protein 2+ (NEGATIVE) H Urine Glucose (UA) Negative (NEGATIVE) Urine Ketones 1+ (NEGATIVE) H Urine Occult Blood 4+ (NEGATIVE) H Urine Nitrite Negative (NEGATIVE) Urine Bilirubin Negative (NEGATIVE) Urine Urobilinogen Normal MG/DL (0.0-1.0) Urine Leukocyte Esterase 3+ (NEGATIVE) H Urine RBC 5-10 /HPF (0 - 2) H Urine WBC 10-15 /HPF (0 - 2) H Urine Squamous Epithelial Cells Few /LPF (NONE/OCC) Urine Bacteria Few /HPF (NONE) Urine Mucus Few /LPF (NONE/OCC) H Plan Problems: (1) Abdominal pain Assessment & Plan: 47M complicated surgical history. currently in recovery after prior surgery. prior lap band with removal, sleeve gastrectomy complicated by leak and still with possible leak. has stents in place which from report have migrated. is planned to have surgery in april 2018 for stent removal. currently doing well. mild leukocytosis improving. UTI. abd exam without peritonitis or significant abnormality. medial drain with possible tube feeds vs purulent output. lateral drain without minimal output feeding tube in place Leukocytosis resolved. Spoke with patients primary Surgeon at [facility]. history and plan confirmed. has plans to study patient for leak in a few weeks, then stent removal, then surgery if necessary. would like to keep patient NPO for now and on J-tube feeds only. aware of drainage from drains. has been on IV Abx for >6 week course prior and has been off abx for some time now stable. was informed of current UTI. -tube feeds to goal -Strict NPO -resume prior meds crushed and given through g tube. -pt/ot -iv abx for treatment of UTI thank you for this consultation. will follow with recs no acute surgical intervention planned. Blu Hinojosa Apr 11, 2018 17:41
--- NOTE | 2018-04-11 19:03 | General Progress Note ---
Assessment/Plan Assessment/Plan ASSESSMENT: The patient is a 47-year-old female with a history of morbid obesity status post lap band in 2010 with revision and sleeve gastrectomy in 2013 with multiple postoperative complications arising from a leak, now with two drains in place and a GJ tube presenting with left upper quadrant pain, leukocytosis concern for intra-abdominal infection. Unfortunately because of her size, she is unable to fit in the CT scanner at [place]. PROBLEM LIST: 1. Enterococcus and Klebsiella UTI 2. History of lap band in 2010 status post revision and sleeve gastrectomy in December 2017 with multiple postoperative complications and repeat laparoscopies with two intra-abdominal drains and GJ tube at this time with concern for intra-abdominal infection. 3. Morbid obesity. 4. HIV. 5. Diabetes. 6. Diabetic neuropathy. 7. Degenerative disk disease. 8. Anxiety 9. Rash, ? drug reaction TREATMENT PLAN: -Abx (cefepime & flagyl) per ID -cART -F/U surgery recs -PRN Benadryl and Atarax -The patient will not fit in the CT scanner. -Pain control/supportive care -NPO, TF's as tolerated -Appreciate renal eval, if prolonged NPO will need to start TPN -DVT prophylaxis, heparin subcutaneous. -PT/OT. -Discharge planning, I anticipate the patient will in the hospital for 1-2 more days and then will return to rehabilitation center for continued therapy. Subjective Allergies: Coded Allergies: GABAPENTIN (Verified Allergy, Unknown, 04/07/18) NAPROXEN (Verified Allergy, Unknown, 04/07/18) PIPERACILLIN (Verified Allergy, Unknown, Itching, 04/08/18) flushing of face and neck SULFA (SULFONAMIDE ANTIBIOTICS) (Verified Allergy, Unknown, 04/07/18) SULFAMETHOXAZOLE (Verified Allergy, Unknown, 04/07/18) TAZOBACTAM (Verified Allergy, Unknown, Itching, 04/08/18) flushing of face and neck TRIMETHOPRIM (Verified Allergy, Unknown, 04/07/18) VANCOMYCIN (Verified Allergy, Unknown, Itching, 04/08/18) Subjective AFVSS, O2 needs stable, OOB, nasreen TF's, Klebsiella and enterococcus UTI, leukocytosis resolved, less rash, no F/C, pain better, no NV Objective Last 24 Hour Vital Signs Date Time Temp Pulse Resp B/P (MAP) Pulse Ox O2 Delivery O2 Flow Rate FiO2 04/11/18 18:36 98.9 04/11/18 18:06 98.9 04/11/18 16:00 98.9 88 18 102/65 (77) 97 98.9 04/11/18 14:02 100.0 04/11/18 09:14 100.0 04/11/18 08:00 Room Air 04/10/18 21:00 Room Air 04/10/18 20:00 100.0 116 18 128/75 (92) 97 100.0 04/10/18 19:53 99.5 Intake and Output 04/10/18 04/11/18 19:00 07:00 Intake Total 210 ml Balance 210 ml Intake IV Total 210 ml # Voids 3 2 Laboratory Tests 04/11/18 08:13: Urine Color Yellow, Urine Appearance Clear, Urine pH 5, Urine Specific [place] 1.025, Urine Protein 2+H, Urine Glucose (UA) Negative, Urine Ketones 1+H, Urine Occult Blood 4+H, Urine Nitrite Negative, Urine Bilirubin Negative, Urine Urobilinogen Normal, Urine Leukocyte Esterase 3+H, Urine RBC 5-10H, Urine WBC 10 -15H, Urine Squamous Epithelial Cells Few, Urine Bacteria Few, Urine Mucus FewH Height (Feet): 5 Height (Inches): 8.00 Weight (Pounds): 304 General Appearance: no apparent distress, morbidly obese EENT: normal ENT inspection Neck: non-tender, normal alignment, supple Cardiovascular: normal peripheral pulses, normal rate, regular rhythm Respiratory/Chest: chest wall non-tender, lungs clear, normal breath sounds, no respiratory distress, no accessory muscle use Abdomen: normal bowel sounds, non tender, soft, no organomegaly, other - Drains and GJ intact Edema: no edema noted Arm (L), no edema noted Arm (R), no edema noted Leg (L), no edema noted Leg (R), no edema noted Pedal (L), no edema noted Pedal (R), no edema noted Generalized Jin Ferreira MD Apr 11, 2018 19:03
[2018-04-11 20:00] VITALS: BP 106/68
[2018-04-11] MEDS: Zolpidem 5mg tab ORAL PRN (22:09)
[2018-04-12] MEDS: Morphine Sulfate 4mg/ml Inj IVP PRN ×4 (05:32→22:34)
[2018-04-12] MEDS: Flagyl 500mg/NS 100ml Pre-Mix IV SCH (05:32)
[2018-04-12] MEDS: DiphenhydrAMINE 50mg/ml Inj IVP PRN ×5 (05:32→22:31)
[2018-04-12 07:47] LABS: BASOPHILS % (AUTO) 0.6 % (0.0-2.0); EOSINOPHILS % (AUTO) 9.1 % (0.0-3.0); HEMATOCRIT 38.3 % (37.0-47.0); HEMOGLOBIN 12.1 G/DL (12.0-16.0); LYMPHOCYTES % (AUTO) 40.5 % (20.0-45.0); MEAN CORPUSCULAR VOLUME 80 FL (80-99); MONOCYTES % (AUTO) 6.1 % (1.0-10.0); NEUTROPHILS % (AUTO) 43.8 % (45.0-75.0); PLATELET COUNT 282 K/UL (150-450); RED BLOOD COUNT 4.78 M/UL (4.20-5.40); RED CELL DISTRIBUTION WIDTH 14.3 % (11.6-14.8); WHITE BLOOD COUNT 7.8 K/UL (4.8-10.8)
[2018-04-12 07:57] LABS: ANION GAP 11 mmol/L (5-15); BLOOD UREA NITROGEN 5 mg/dL (7-18); CALCIUM 8.5 MG/DL (8.5-10.1); CARBON DIOXIDE 26 MMOL/L (21-32); CHLORIDE 104 MMOL/L (98-107); CREATININE 0.6 MG/DL (0.55-1.30); POTASSIUM 3.7 MMOL/L (3.5-5.1); SODIUM 141 MMOL/L (136-145)
[2018-04-12 08:00] VITALS: BP 107/72
[2018-04-12] MEDS: KALETRA ORAL SCH ×2 (09:38→22:05)
[2018-04-12] MEDS: Cefepime HCl 2 GM in D5W 110 ML IVPB SCH (09:38)
[2018-04-12] MEDS: BusPIRone 5mg Tab ORAL SCH ×2 (09:39→17:58)
[2018-04-12] MEDS: Citalopram Hydrobromide 10mg Tab ORAL SCH (09:39)
[2018-04-12] MEDS: Heparin 5000 units/ml inj SUBQ SCH ×2 (09:42→21:00)
[2018-04-12 12:00] VITALS: BP 106/71
--- NOTE | 2018-04-12 13:37 | Infectious Diseases Prog Note ---
Assessment/Plan Assessment/Plan ASSESSMENT AND PLAN: 1. kpc/klebsiella uti, vre uti, sepsis, leukocytosis fevers, likely abdominal infection, hx of gastric bypass surgery with complications, stent, drains, feeding tube - change to Tygacil x 10 days - fevers and leukocytosis better - monitor labs - d/w surgery who discussed case with previous surgeon and favors treating acute uti/infection and the patient to follow up with previous surgeon for further mgt - d/w RN x 2 2. drug rash - zosyn and vancomycin both held, supportive care 3. Human immunodeficiency virus. Continue Truvada and Kaletra - f/u on cd4 count, pt to f/y with outpatient HIV md 4. Morbid obesity. 5. Depression. 6. Diabetes. 7. No history of hypertension mentioned. 8. Blood sugar treatment per primary. 9. Hyperglycemia. 10. History of lap band procedure, sleeve gastrectomy removal leak, stent placement, possible migrating stent and washout. 11. Allergies, possibly Zosyn or vancomycin, gabapentin, naproxen, and sulfa drugs. 12. Social history is negative. 13. Family history is noncontributory. 14. MAR was noted. 15. Case discussed with RN. 16. Continue treatment per primary consultants. 17. Case was discussed with the patient and questions were answered. 18. vre colonization and isolation 19. abx orders entered 20. d/w patient and answered questions Subjective Constitutional: Denies: fever HEENT: Denies: congestion Respiratory: Denies: shortness of breath Cardiovascular: Denies: chest pain Gastrointestinal/Abdominal: Denies: nausea, vomiting, diarrhea Genitourinary: Reports: dysuria, other - no cva pain; Denies: hematuria Neurologic: Denies: headache Psychiatric: Denies: depression Skin: Reports: other - rash better Hematologic: Denies: bleeding Musculoskeletal: Denies: pain Allergies: Coded Allergies: GABAPENTIN (Verified Allergy, Unknown, 04/07/18) NAPROXEN (Verified Allergy, Unknown, 04/07/18) PIPERACILLIN (Verified Allergy, Unknown, Itching, 04/08/18) flushing of face and neck SULFA (SULFONAMIDE ANTIBIOTICS) (Verified Allergy, Unknown, 04/07/18) SULFAMETHOXAZOLE (Verified Allergy, Unknown, 04/07/18) TAZOBACTAM (Verified Allergy, Unknown, Itching, 04/08/18) flushing of face and neck TRIMETHOPRIM (Verified Allergy, Unknown, 04/07/18) VANCOMYCIN (Verified Allergy, Unknown, Itching, 04/08/18) Objective Vital Signs Last 24 Hour Vital Signs Date Time Temp Pulse Resp B/P (MAP) Pulse Ox O2 Delivery O2 Flow Rate FiO2 04/12/18 12:00 98.1 82 18 106/71 (83) 96 98.1 04/12/18 09:00 Room Air 04/12/18 08:00 98.1 88 18 107/72 (84) 96 98.1 04/11/18 22:40 98.9 04/11/18 21:00 Room Air 04/11/18 20:00 98.8 89 20 106/68 (81) 100 98.8 04/11/18 18:06 98.9 04/11/18 16:00 98.9 88 18 102/65 (77) 97 98.9 04/11/18 14:02 100.0 Height (Feet): 5 Height (Inches): 8.00 Weight (Pounds): 304 General Appearance: no acute distress HEENT: normocephalic, atraumatic, anicteric, mucous membranes moist Respiratory/Chest: lungs clear, normal breath sounds, no respiratory distress Cardiovascular: normal rate, regular rhythm, no gallop/murmur, no JVD Abdomen: normal bowel sounds, soft, non tender, no organomegaly, non distended Genitourinary: other - no beard Extremities: no cyanosis Skin: rash - rash less 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 Complete 04/10/18 00:00 Urine,Clean Catch Urine Culture - Preliminary Resulted 04/10/18 10:00 Rectal Mucosa VRE Culture - Final Enterococcus Faecium - Vre Resulted 04/10/18 10:00 Rectal Mucosa Pending Resulted Microbiology Date/Time Source Procedure Growth Status 04/10/18 10:00 Nasal Nares MRSA Culture - Final NO METHICILLIN RESISTANT STAPH AUREUS... Complete 04/10/18 00:00 Urine,Clean Catch Urine Culture - Preliminary Resulted 04/10/18 10:00 Rectal Mucosa VRE Culture - Final Enterococcus Faecium - Vre Resulted 04/10/18 10:00 Rectal Mucosa Pending Resulted Laboratory Tests Test 04/12/18 05:30 White Blood Count 7.8 K/UL (4.8-10.8) Red Blood Count 4.78 M/UL (4.20-5.40) Hemoglobin 12.1 G/DL (12.0-16.0) Hematocrit 38.3 % (37.0-47.0) Mean Corpuscular Volume 80 FL (80-99) Mean Corpuscular Hemoglobin 25.2 PG (27.0-31.0) L Mean Corpuscular Hemoglobin Concent 31.5 G/DL (32.0-36.0) L Red Cell Distribution Width 14.3 % (11.6-14.8) Platelet Count 282 K/UL (150-450) Mean Platelet Volume 6.2 FL (6.5-10.1) L Neutrophils (%) (Auto) 43.8 % (45.0-75.0) L Lymphocytes (%) (Auto) 40.5 % (20.0-45.0) Monocytes (%) (Auto) 6.1 % (1.0-10.0) Eosinophils (%) (Auto) 9.1 % (0.0-3.0) H Basophils (%) (Auto) 0.6 % (0.0-2.0) Sodium Level 141 MMOL/L (136-145) Potassium Level 3.7 MMOL/L (3.5-5.1) Chloride Level 104 MMOL/L (98-107) Carbon Dioxide Level 26 MMOL/L (21-32) Anion Gap 11 mmol/L (5-15) Blood Urea Nitrogen 5 mg/dL (7-18) L Creatinine 0.6 MG/DL (0.55-1.30) Estimat Glomerular Filtration Rate > 60 mL/min (>60) Glucose Level 125 MG/DL (74-106) H Calcium Level 8.5 MG/DL (8.5-10.1) Current Medications Medications (Trade) Dose Ordered Sig/Elizabet Route PRN Reason Start Time Stop Time Status Last Admin Dose Admin Acetaminophen (Tylenol) 650 mg Q6H PRN ORAL Mild Pain/Temp > 100.5 04/08/18 01:45 05/08/18 01:44 04/08/18 21:25 Buspirone HCl (Buspar) 5 mg BID ORAL 04/08/18 09:00 05/08/18 08:59 04/12/18 09:39 Citalopram Hydrobromide (celeXA) 10 mg DAILY ORAL 04/08/18 09:00 05/08/18 08:59 04/12/18 09:39 Diphenhydramine HCl (Benadryl) 50 mg Q4H PRN IVP Itching 04/08/18 18:00 05/08/18 17:59 04/12/18 09:39 Emtricitabine/ Tenofovir (Truvada 200/ 300mg) 1 tab DAILY ORAL 04/08/18 09:00 05/08/18 08:59 04/12/18 09:38 Famotidine (Pepcid) 20 mg BID ORAL 04/10/18 18:00 05/10/18 17:59 04/12/18 09:38 Heparin Sodium (Porcine) (Heparin 5000 units/ml) 5,000 units EVERY 12 HOURS SUBQ 04/08/18 09:00 05/08/18 08:59 04/12/18 09:42 Hydroxyzine HCl (Vistaril) 10 mg Q6H PRN ORAL Itching 04/08/18 18:30 05/08/18 18:29 04/12/18 09:44 Lopinavir/ Ritonavir (Kaletra) 2 tab Q12HR ORAL 04/08/18 21:00 05/08/18 20:59 04/12/18 09:38 Morphine Sulfate (Morphine Sulfate) 1 mg Q4H PRN IVP For mild pain 1-3 04/08/18 01:45 04/15/18 01:44 04/09/18 16:11 Morphine Sulfate (Morphine Sulfate) 2 mg Q4H PRN IVP For moderate pain 4-6 04/08/18 01:45 04/15/18 01:44 04/09/18 21:25 Morphine Sulfate (Morphine Sulfate) 4 mg Q4H PRN IVP For Severe Pain 7-10 04/08/18 01:45 04/15/18 01:44 04/12/18 09:41 Multivitamins (Multivitamins) 1 tab DAILY ORAL 04/08/18 09:00 05/08/18 08:59 04/12/18 09:39 Ondansetron HCl (Zofran) 4 mg EVERY 4 HOURS PRN IVP Nausea & Vomiting 04/08/18 01:45 05/08/18 01:44 04/08/18 08:53 Tigecycline 100 mg/Dextrose 110 ml @ 110 mls/hr ONCE ONCE IVPB 04/12/18 13:15 04/12/18 14:14 UNV Tigecycline 50 mg/ Dextrose 110 ml @ 220 mls/hr EVERY 12 HOURS IVPB 04/12/18 21:00 04/19/18 20:59 UNV Zolpidem Tartrate (Ambien) 5 mg HSPRN PRN ORAL Insomnia 04/08/18 01:45 04/15/18 01:44 04/11/18 22:09 Carolina Covington MD Apr 12, 2018 13:37
[2018-04-12] MEDS ORDERED: Tigecycline 100 MG in D5W 110 ML IVPB ONE (14:00)
[2018-04-12] MEDS: Morphine Sulfate 2mg/ml Inj IVP PRN (14:10)
--- NOTE | 2018-04-12 15:08 | General Surgery Progress Note ---
General Surgery-Progress Note Subjective Symptoms: improved Additional Comments fevers resolved. leukocytosis resolved. overall improved. Objective Last 24 Hour Vital Signs Date Time Temp Pulse Resp B/P (MAP) Pulse Ox O2 Delivery O2 Flow Rate FiO2 04/12/18 14:40 98.1 04/12/18 14:10 98.1 04/12/18 12:00 98.1 82 18 106/71 (83) 96 98.1 04/12/18 09:00 Room Air 04/12/18 08:00 98.1 88 18 107/72 (84) 96 98.1 04/11/18 22:40 98.9 04/11/18 21:00 Room Air 04/11/18 20:00 98.8 89 20 106/68 (81) 100 98.8 04/11/18 18:06 98.9 04/11/18 16:00 98.9 88 18 102/65 (77) 97 98.9 I&O Intake and Output 04/11/18 04/12/18 19:00 07:00 Intake Total 920 ml 1090 ml Output Total 70 ml Balance 920 ml 1020 ml Intake Free Water 60 ml 180 ml IV Total 210 ml 310 ml Tube Feeding 650 ml 600 ml Drainage Total 70 ml # Voids 3 Wound: clean Drains: none Cardiovascular: RSR Respiratory: clear Abdomen: soft, non-tender, present bowel sounds Extremities: edema, no cyanosis Laboratory Tests Test 04/12/18 05:30 White Blood Count 7.8 K/UL (4.8-10.8) Red Blood Count 4.78 M/UL (4.20-5.40) Hemoglobin 12.1 G/DL (12.0-16.0) Hematocrit 38.3 % (37.0-47.0) Mean Corpuscular Volume 80 FL (80-99) Mean Corpuscular Hemoglobin 25.2 PG (27.0-31.0) L Mean Corpuscular Hemoglobin Concent 31.5 G/DL (32.0-36.0) L Red Cell Distribution Width 14.3 % (11.6-14.8) Platelet Count 282 K/UL (150-450) Mean Platelet Volume 6.2 FL (6.5-10.1) L Neutrophils (%) (Auto) 43.8 % (45.0-75.0) L Lymphocytes (%) (Auto) 40.5 % (20.0-45.0) Monocytes (%) (Auto) 6.1 % (1.0-10.0) Eosinophils (%) (Auto) 9.1 % (0.0-3.0) H Basophils (%) (Auto) 0.6 % (0.0-2.0) Sodium Level 141 MMOL/L (136-145) Potassium Level 3.7 MMOL/L (3.5-5.1) Chloride Level 104 MMOL/L (98-107) Carbon Dioxide Level 26 MMOL/L (21-32) Anion Gap 11 mmol/L (5-15) Blood Urea Nitrogen 5 mg/dL (7-18) L Creatinine 0.6 MG/DL (0.55-1.30) Estimat Glomerular Filtration Rate > 60 mL/min (>60) Glucose Level 125 MG/DL (74-106) H Calcium Level 8.5 MG/DL (8.5-10.1) Plan Problems: (1) Abdominal pain Assessment & Plan: 47M complicated surgical history. currently in recovery after prior surgery. prior lap band with removal, sleeve gastrectomy complicated by leak and still with possible leak. has stents in place which from report have migrated. is planned to have surgery in april 2018 for stent removal. currently doing well. mild leukocytosis improving. UTI. abd exam without peritonitis or significant abnormality. medial drain with possible tube feeds vs purulent output. lateral drain without minimal output feeding tube in place Leukocytosis resolved. Spoke with patients primary Surgeon at [facility]. history and plan confirmed. has plans to study patient for leak in a few weeks, then stent removal, then surgery if necessary. would like to keep patient NPO for now and on J-tube feeds only. aware of drainage from drains. has been on IV Abx for >6 week course prior and has been off abx for some time now stable. was informed of current UTI. -tube feeds to goal -Strict NPO -resume prior meds crushed and given through g tube. -pt/ot -iv abx for treatment of UTI thank you for this consultation. will follow with recs no acute surgical intervention planned. Blu Hinojosa Apr 12, 2018 15:08
[2018-04-12 16:00] VITALS: BP 111/64
--- NOTE | 2018-04-12 16:57 | General Progress Note ---
Assessment/Plan Assessment/Plan ASSESSMENT: The patient is a 47-year-old female with a history of morbid obesity status post lap band in 2010 with revision and sleeve gastrectomy in 2013 with multiple postoperative complications arising from a leak, now with two drains in place and a GJ tube presenting with left upper quadrant pain, leukocytosis concern for intra-abdominal infection. Unfortunately because of her size, she is unable to fit in the CT scanner at [place]. PROBLEM LIST: 1. Enterococcus and Klebsiella UTI 2. History of lap band in 2010 status post revision and sleeve gastrectomy in December 2017 with multiple postoperative complications and repeat laparoscopies with two intra-abdominal drains and GJ tube at this time with concern for intra-abdominal infection. 3. Morbid obesity. 4. HIV. 5. Diabetes. 6. Diabetic neuropathy. 7. Degenerative disk disease. 8. Anxiety 9. Rash, ? drug reaction TREATMENT PLAN: -Abx (Tigacil) per ID -cART -F/U surgery recs -PRN Benadryl and Atarax -The patient will not fit in the CT scanner. -Pain control/supportive care -NPO, TF's as tolerated -Appreciate renal eval, if prolonged NPO will need to start TPN -DVT prophylaxis, heparin subcutaneous. -PT/OT. -Discharge planning, I anticipate the patient will in the hospital for 1-2 more days and then will return to rehabilitation center for continued therapy. Subjective Allergies: Coded Allergies: GABAPENTIN (Verified Allergy, Unknown, 04/07/18) NAPROXEN (Verified Allergy, Unknown, 04/07/18) PIPERACILLIN (Verified Allergy, Unknown, Itching, 04/08/18) flushing of face and neck SULFA (SULFONAMIDE ANTIBIOTICS) (Verified Allergy, Unknown, 04/07/18) SULFAMETHOXAZOLE (Verified Allergy, Unknown, 04/07/18) TAZOBACTAM (Verified Allergy, Unknown, Itching, 04/08/18) flushing of face and neck TRIMETHOPRIM (Verified Allergy, Unknown, 04/07/18) VANCOMYCIN (Verified Allergy, Unknown, Itching, 04/08/18) Subjective AFVSS, O2 needs stable, OOB, nasreen TF's, started on Tigacil, leukocytosis resolved , less rash, no F/C, pain persistent, no NV Objective Last 24 Hour Vital Signs Date Time Temp Pulse Resp B/P (MAP) Pulse Ox O2 Delivery O2 Flow Rate FiO2 04/12/18 16:00 99.0 79 18 111/64 (80) 97 99.0 04/12/18 14:40 98.1 04/12/18 14:10 98.1 04/12/18 12:00 98.1 82 18 106/71 (83) 96 98.1 04/12/18 09:00 Room Air 04/12/18 08:00 98.1 88 18 107/72 (84) 96 98.1 04/11/18 22:40 98.9 04/11/18 21:00 Room Air 04/11/18 20:00 98.8 89 20 106/68 (81) 100 98.8 04/11/18 18:06 98.9 Intake and Output 04/11/18 04/12/18 19:00 07:00 Intake Total 920 ml 1090 ml Output Total 70 ml Balance 920 ml 1020 ml Intake Free Water 60 ml 180 ml IV Total 210 ml 310 ml Tube Feeding 650 ml 600 ml Drainage Total 70 ml # Voids 3 Laboratory Tests 04/12/18 05:30: White Blood Count 7.8, Red Blood Count 4.78, Hemoglobin 12.1, Hematocrit 38.3, Mean Corpuscular Volume 80, Mean Corpuscular Hemoglobin 25.2L, Mean Corpuscular Hemoglobin Concent 31.5L, Red Cell Distribution Width 14.3, Platelet Count 282, Mean Platelet Volume 6.2L, Neutrophils (%) (Auto) 43.8L, Lymphocytes (%) (Auto) 40.5, Monocytes (%) (Auto) 6.1, Eosinophils (%) (Auto) 9.1H, Basophils (%) (Auto ) 0.6, Sodium Level 141, Potassium Level 3.7, Chloride Level 104, Carbon Dioxide Level 26, Anion Gap 11, Blood Urea Nitrogen 5L, Creatinine 0.6, Estimat Glomerular Filtration Rate > 60, Glucose Level 125H, Calcium Level 8.5 Height (Feet): 5 Height (Inches): 8.00 Weight (Pounds): 304 General Appearance: other EENT: normal ENT inspection Neck: non-tender, normal alignment, supple Cardiovascular: normal peripheral pulses, normal rate, regular rhythm Respiratory/Chest: chest wall non-tender, lungs clear, normal breath sounds, no respiratory distress, no accessory muscle use Abdomen: normal bowel sounds, non tender, soft, no organomegaly Edema: no edema noted Arm (L), no edema noted Arm (R), no edema noted Leg (L), no edema noted Leg (R), no edema noted Pedal (L), no edema noted Pedal (R), no edema noted Generalized Jin Ferreira MD Apr 12, 2018 16:57
[2018-04-12 20:04] VITALS: BP 97/58
[2018-04-12 20:15] VITALS: BP 105/62
[2018-04-12] MEDS ORDERED: Dyna-Hex 2% Top Sol 2oz TOPIC SCH (22:00)
[2018-04-12] MEDS: Zolpidem 5mg tab ORAL PRN (22:05)
[2018-04-12] MEDS: Tigecycline 50 MG in D5W 110 ML IVPB SCH (22:05)
[2018-04-13] MEDS: DiphenhydrAMINE 50mg/ml Inj IVP PRN ×5 (05:07→21:23)
[2018-04-13] MEDS: Morphine Sulfate 4mg/ml Inj IVP PRN ×5 (05:08→21:31)
[2018-04-13 08:00] VITALS: BP 96/56
[2018-04-13] MEDS: Tigecycline 50 MG in D5W 110 ML IVPB SCH ×2 (09:12→21:23)
[2018-04-13] MEDS: BusPIRone 5mg Tab ORAL SCH ×2 (09:12→17:32)
[2018-04-13] MEDS: Citalopram Hydrobromide 10mg Tab ORAL SCH (09:12)
[2018-04-13] MEDS: KALETRA ORAL SCH ×2 (09:14→21:45)
[2018-04-13] MEDS: Heparin 5000 units/ml inj SUBQ SCH ×2 (09:19→21:00)
[2018-04-13 13:37] LABS: BASOPHILS % (AUTO) 1.6 % (0.0-2.0); EOSINOPHILS % (AUTO) 7.4 % (0.0-3.0); HEMATOCRIT 43.4 % (37.0-47.0); HEMOGLOBIN 13.5 G/DL (12.0-16.0); LYMPHOCYTES % (AUTO) 40.8 % (20.0-45.0); MEAN CORPUSCULAR VOLUME 80 FL (80-99); MONOCYTES % (AUTO) 10.6 % (1.0-10.0); NEUTROPHILS % (AUTO) 39.5 % (45.0-75.0); PLATELET COUNT 318 K/UL (150-450); RED BLOOD COUNT 5.41 M/UL (4.20-5.40); RED CELL DISTRIBUTION WIDTH 14.1 % (11.6-14.8)
[2018-04-13 13:56] LABS: ANION GAP 8 mmol/L (5-15); BLOOD UREA NITROGEN 15 mg/dL (7-18); CALCIUM 8.8 MG/DL (8.5-10.1); CARBON DIOXIDE 27 MMOL/L (21-32); CHLORIDE 104 MMOL/L (98-107); CREATININE 0.6 MG/DL (0.55-1.30); POTASSIUM 4.2 MMOL/L (3.5-5.1); SODIUM 139 MMOL/L (136-145)
--- NOTE | 2018-04-13 14:42 | General Surgery Progress Note ---
General Surgery-Progress Note Subjective Symptoms: tolerating diet, BM Additional Comments no acute events. doing well. drains stable. wounds okay. Objective Last 24 Hour Vital Signs Date Time Temp Pulse Resp B/P (MAP) Pulse Ox O2 Delivery O2 Flow Rate FiO2 04/13/18 13:51 98.4 04/13/18 13:21 98.4 04/13/18 09:15 98.4 04/13/18 09:00 Room Air 04/13/18 09:00 Room Air 04/13/18 08:00 98.1 80 20 96/56 (69) 97 98.1 04/12/18 21:00 Room Air 04/12/18 20:15 105/62 (76) 04/12/18 20:04 98.4 77 20 97/58 (71) 98 98.4 04/12/18 18:25 99.0 04/12/18 16:00 99.0 79 18 111/64 (80) 97 99.0 I&O Intake and Output 04/12/18 04/13/18 19:00 07:00 Intake Total 660 ml 780 ml Output Total 75 ml 50 ml Balance 585 ml 730 ml Intake Free Water 60 ml 120 ml IV Total 110 ml Tube Feeding 600 ml 550 ml Drainage Total 75 ml 50 ml # Voids 3 Wound: clean Drains: ariel Cardiovascular: RSR Respiratory: clear Abdomen: soft, non-tender, present bowel sounds Extremities: no cyanosis Laboratory Tests Test 04/13/18 13:10 White Blood Count 8.0 K/UL (4.8-10.8) Red Blood Count 5.41 M/UL (4.20-5.40) H Hemoglobin 13.5 G/DL (12.0-16.0) Hematocrit 43.4 % (37.0-47.0) Mean Corpuscular Volume 80 FL (80-99) Mean Corpuscular Hemoglobin 25.0 PG (27.0-31.0) L Mean Corpuscular Hemoglobin Concent 31.2 G/DL (32.0-36.0) L Red Cell Distribution Width 14.1 % (11.6-14.8) Platelet Count 318 K/UL (150-450) Mean Platelet Volume 5.9 FL (6.5-10.1) L Neutrophils (%) (Auto) 39.5 % (45.0-75.0) L Lymphocytes (%) (Auto) 40.8 % (20.0-45.0) Monocytes (%) (Auto) 10.6 % (1.0-10.0) H Eosinophils (%) (Auto) 7.4 % (0.0-3.0) H Basophils (%) (Auto) 1.6 % (0.0-2.0) Sodium Level 139 MMOL/L (136-145) Potassium Level 4.2 MMOL/L (3.5-5.1) Chloride Level 104 MMOL/L (98-107) Carbon Dioxide Level 27 MMOL/L (21-32) Anion Gap 8 mmol/L (5-15) Blood Urea Nitrogen 15 mg/dL (7-18) Creatinine 0.6 MG/DL (0.55-1.30) Estimat Glomerular Filtration Rate > 60 mL/min (>60) Glucose Level 111 MG/DL (74-106) H Calcium Level 8.8 MG/DL (8.5-10.1) Plan Problems: (1) Abdominal pain Assessment & Plan: 47M complicated surgical history. currently in recovery after prior surgery. prior lap band with removal, sleeve gastrectomy complicated by leak and still with possible leak. has stents in place which from report have migrated. is planned to have surgery in april 2018 for stent removal. currently doing well. mild leukocytosis improving. UTI. abd exam without peritonitis or significant abnormality. medial drain with possible tube feeds vs purulent output. lateral drain without minimal output feeding tube in place Leukocytosis resolved. Spoke with patients primary Surgeon at [facility]. history and plan confirmed. has plans to study patient for leak in a few weeks, then stent removal, then surgery if necessary. would like to keep patient NPO for now and on J-tube feeds only. aware of drainage from drains. has been on IV Abx for >6 week course prior and has been off abx for some time now stable. was informed of current UTI. -tube feeds to goal -Strict NPO -resume prior meds crushed and given through g tube. -pt/ot -iv abx for treatment of UTI -okay to d/c from surgical standpoint thank you for this consultation. will follow with recs no acute surgical intervention planned. Blu Hinojosa Apr 13, 2018 14:42
--- NOTE | 2018-04-13 17:49 | General Progress Note ---
Assessment/Plan Assessment/Plan ASSESSMENT: The patient is a 47-year-old female with a history of morbid obesity status post lap band in 2010 with revision and sleeve gastrectomy in 2013 with multiple postoperative complications arising from a leak, now with two drains in place and a GJ tube presenting with left upper quadrant pain, leukocytosis concern for intra-abdominal infection. Unfortunately because of her size, she is unable to fit in the CT scanner at [facility]. PROBLEM LIST: 1. Enterococcus and Klebsiella UTI 2. History of lap band in 2010 status post revision and sleeve gastrectomy in December 2017 with multiple postoperative complications and repeat laparoscopies with two intra-abdominal drains and GJ tube at this time with concern for intra-abdominal infection. 3. Morbid obesity. 4. HIV. 5. Diabetes. 6. Diabetic neuropathy. 7. Degenerative disk disease. 8. Anxiety 9. Rash, ? drug reaction TREATMENT PLAN: -Abx (Tigacil) per ID -cART -F/U surgery recs -PRN Benadryl and Atarax -The patient will not fit in the CT scanner. -Pain control/supportive care -NPO, TF's as tolerated -DVT prophylaxis, heparin subcutaneous. -PT/OT. -Discharge planning, cleared by surgery, once cleared by ID can be D/C'd back to SNF on PO or IV Abx and will F/U with Dr. Mir as previously planned Subjective Allergies: Coded Allergies: GABAPENTIN (Verified Allergy, Unknown, 04/07/18) NAPROXEN (Verified Allergy, Unknown, 04/07/18) PIPERACILLIN (Verified Allergy, Unknown, Itching, 04/08/18) flushing of face and neck SULFA (SULFONAMIDE ANTIBIOTICS) (Verified Allergy, Unknown, 04/07/18) SULFAMETHOXAZOLE (Verified Allergy, Unknown, 04/07/18) TAZOBACTAM (Verified Allergy, Unknown, Itching, 04/08/18) flushing of face and neck TRIMETHOPRIM (Verified Allergy, Unknown, 04/07/18) VANCOMYCIN (Verified Allergy, Unknown, Itching, 04/08/18) Subjective AFVSS, O2 needs stable, OOB, nasreen TF's, no rash, no F/C, pain persistent, no NV Objective Last 24 Hour Vital Signs Date Time Temp Pulse Resp B/P (MAP) Pulse Ox O2 Delivery O2 Flow Rate FiO2 04/13/18 17:32 98.4 04/13/18 13:51 98.4 04/13/18 13:21 98.4 04/13/18 09:15 98.4 04/13/18 09:00 Room Air 04/13/18 09:00 Room Air 04/13/18 08:00 98.1 80 20 96/56 (69) 97 98.1 04/12/18 21:00 Room Air 04/12/18 20:15 105/62 (76) 04/12/18 20:04 98.4 77 20 97/58 (71) 98 98.4 04/12/18 18:25 99.0 Intake and Output 04/12/18 04/13/18 19:00 07:00 Intake Total 660 ml 830 ml Output Total 75 ml 50 ml Balance 585 ml 780 ml Intake Free Water 60 ml 120 ml IV Total 110 ml Tube Feeding 600 ml 600 ml Drainage Total 75 ml 50 ml # Voids 3 Laboratory Tests 04/13/18 13:10: White Blood Count 8.0, Red Blood Count 5.41H, Hemoglobin 13.5, Hematocrit 43.4, Mean Corpuscular Volume 80, Mean Corpuscular Hemoglobin 25.0L, Mean Corpuscular Hemoglobin Concent 31.2L, Red Cell Distribution Width 14.1, Platelet Count 318, Mean Platelet Volume 5.9L, Neutrophils (%) (Auto) 39.5L, Lymphocytes (%) (Auto) 40.8, Monocytes (%) (Auto) 10.6H, Eosinophils (%) (Auto) 7.4H, Basophils (%) ( Auto) 1.6, Sodium Level 139, Potassium Level 4.2, Chloride Level 104, Carbon Dioxide Level 27, Anion Gap 8, Blood Urea Nitrogen 15, Creatinine 0.6, Estimat Glomerular Filtration Rate > 60, Glucose Level 111H, Calcium Level 8.8 Height (Feet): 5 Height (Inches): 8.00 Weight (Pounds): 304 General Appearance: no apparent distress, obese EENT: PERRL/EOMI, normal ENT inspection Neck: non-tender, normal alignment, supple, normal inspection Cardiovascular: normal peripheral pulses, normal rate, regular rhythm Respiratory/Chest: chest wall non-tender, lungs clear, normal breath sounds, no respiratory distress Abdomen: normal bowel sounds, non tender, soft, no organomegaly, other - drains and GJ intact Edema: no edema noted Arm (L), no edema noted Arm (R), no edema noted Leg (L), no edema noted Leg (R), no edema noted Pedal (L), no edema noted Pedal (R), no edema noted Generalized Jin Ferreira MD Apr 13, 2018 17:49
[2018-04-13 20:00] VITALS: BP 116/69
[2018-04-13] MEDS ORDERED: Dyna-Hex 2% Top Sol 2oz TOPIC SCH (20:00)
[2018-04-13] MEDS: Zolpidem 5mg tab ORAL PRN (21:23)
[2018-04-14] MEDS: DiphenhydrAMINE 50mg/ml Inj IVP PRN ×2 (05:03→09:23)
[2018-04-14] MEDS: Morphine Sulfate 4mg/ml Inj IVP PRN ×2 (05:03→09:24)
[2018-04-14 08:00] VITALS: BP 123/87
[2018-04-14] MEDS: Citalopram Hydrobromide 10mg Tab ORAL SCH (09:22)
[2018-04-14] MEDS: BusPIRone 5mg Tab ORAL SCH (09:22)
[2018-04-14] MEDS: Heparin 5000 units/ml inj SUBQ SCH (09:24)
[2018-04-14] MEDS: KALETRA ORAL SCH (09:26)
[2018-04-14] MEDS: Tigecycline 50 MG in D5W 110 ML IVPB SCH (09:26)
[2018-04-14] MEDS ORDERED: ACETAMINOPHEN325 M1 ORAL (10:43)
[2018-04-14] MEDS ORDERED: HIBICLENS118 ML TP (10:44)
[2018-04-14] MEDS ORDERED: DIPHENHYDRAM IVP (10:47)
[2018-04-14] MEDS ORDERED: FAMOTIDINE20 MG ORAL (10:50)
[2018-04-14] MEDS ORDERED: HEPARIN SO5000 UNIT2 SUBQ (10:51)
[2018-04-14] MEDS ORDERED: KALETRA 200-501 EAC1 ORAL (10:52)
[2018-04-14] MEDS ORDERED: HYDROXYZINE HCL10 M1 PO (10:52)
[2018-04-14] MEDS ORDERED: MORPHINE SU4 MG/1 ML IVP ×3 (10:53→10:55)
[2018-04-14] MEDS ORDERED: MULTIVITAMINS1 EAC2 ORAL (10:56)
[2018-04-14] MEDS ORDERED: ZOFRAN 4 MG4 MG/2 ML IV (10:57)
[2018-04-14] MEDS ORDERED: TYGACIL50 MG IVPB (10:58)
[2018-04-14] MEDS ORDERED: Sterile Water Irrig 1000ml IRRIG ONE (11:51)
--- NOTE | 2018-04-17 09:30 | Discharge Summary ---
Discharge Summary Discharge Summary _ DATE OF ADMISSION: 04/07/2018 DATE OF DISCHARGE: 04/14/2018 REASON FOR ADMISSION: 47-year-old female with multiple medical problems including HIV, morbid obesity , status post lap band with subsequent removal and sleeve gastrectomy on December in [place], complicated by leak and stent placement with laparoscopic abdominal washout, migration of stents , who was transferred to [facility] for higher level of care February 02, 2018, underwent multiple procedures, including EGD with stent removal and pigtail placement February 15, 2018, laparoscopic washout, EGD and stent replacement February 21, 2018, and EGD with endoscopic suturing 02/23/2018. She was discharged to [facility] on 03/13/2018. She had been strict NPO on tube feeding via J-tube, which she was tolerated . Drains outputs were closely monitored, remained stable. She had been having ongoing issues with residual leakage and deconditioning. Patient was transferred with left upper quadrant pain from SNF for further evaluation and management. She denied any fevers, chills, headache, dizziness, nausea, or vomiting. She had left upper quadrant pain, no radiation. She has had bowel output. Upon evaluation patient was febrile, tachycardic,laboratory work showed evidence of leukocytosis. Hemoglobin and hematocrit were stable Troponin was negative. Electrolytes, LFT renal parameters and lipase were all within normal limits. Urinalysis with evidence of UTI. Patient admitted with following diagnoses: abdominal pain, likely intra-abdominal infection, urinary tract infection, history of lap band, status post revision and sleeve gastrectomy with multiple postoperative complications and repeat laparoscopies with two intra-abdominal drains and GJ tube placement morbid obesity , HIV status, diabetes mellitus, diabetic neuropathy, degenerative disc disease, anxiety. CONSULTANTS: ID specialist Dr. Covington marking room supervisor Dr.De Law surgery Dr. Hinojosa [facility]RSE: Patient admitted to the hospital. Patient started on broad-spectrum antibiotics. ID and general surgery consults were requested. Patient was unable to have CT scan since she did not fit into the CT machine. Patient started on the IV hydration. Pain management was addressed. Supportive care provided . Patient initially was NPO. DVT and GI prophylaxis provided . Surgeon seen and evaluated the patient. Abdominal exam was benign without peritonitis or significant abnormality. Surgeon cleared to resume tube feeding and continue IV antibiotic. No acute surgical intervention was planned at this time. All medication were crushed and given via J-tube. Surgeon discussed the case with patient's primary surgeon at [facility] for further management. Patient was already scheduled for for further studies of stent and probable4 stent removal in April 2018, then surgery if necessary. Patient was prior on IV antibiotics for over 6 weeks course. Patient was currently on antibiotics for UTI. Strict NPO with J tube feeding continued. Leukocytosis resolved pain controlled. ID specialist closely followed. Antibiotic regimen was directed as per ID recommendations. Patient had a drug rash and both Zosyn and vancomycin were held . Antibiotics were changed to Tygacil to be continued for amount of time as specified by ID specialist to complete the course. . Patient with HIV status ,CD4 count 372. Patient was continued with Truvada and Calyolanda. Patient to continue follow-up with outpatient HIV medical doctor. Nephrology evaluation requested for possible initiation of TPN. Voicer seen and evaluated patient. At this time electrolytes and renal parameters were. No TPN was required to be initiated. Renal parameters and electrolytes were closely monitored, electrolytes, specifically magnesium, corrected as needed; nephrotoxins were avoided. Patient started to work with physical and occupational therapists. DVT and GI prophylaxis provided. Leukocytosis resolved, no fevers. Pain controlled. Patient clinically stabilized and was ready for discharge home to alf facility; follow-up at [facility] for further study as scheduled. FINAL DIAGNOSES: VRE and Klebsiella, carbapenem resistant UTI Sepsis History of lap band, status post revision and sleeve gastrectomy with multiple postoperative complications and repeat laparoscopies with two intra-abdominal drains and GJ tube Morbid obesity HIV status Diabetes Diabetic neuropathy Degenerative disc disease Anxiety Probable drug reaction rash DISCHARGE MEDICATIONS: See Medication Reconciliation list. DISCHARGE INSTRUCTIONS: Patient was discharged to alf facility. Follow up with medical doctor at the facility. I have been assigned to dictate discharge summary for this account. I was not involved in the patient's management. Linda Mar NP Apr 17, 2018 09:30
== END 2018-04-14 11:52 | DRG 975 ==
LOC: EDBD 18:57 → EMR 21:16 → 4W 21:18 → EDBEDREQ 21:49
DX: A41.9 Sepsis, unspecified organism (principal); B20 Human immunodeficiency virus [HIV] disease; N39.0 Urinary tract infection, site not specified; Z68.42 Body mass index [BMI] 45.0-49.9, adult; R10.9 Unspecified abdominal pain; E66.01 Morbid (severe) obesity due to excess calories; Z98.84 Bariatric surgery status; Z88.6 Allergy status to analgesic agent; Z88.2 Allergy status to sulfonamides; Z88.8 Allergy status to other drugs, medicaments and biological substances; F32.9 Major depressive disorder, single episode, unspecified; F41.9 Anxiety disorder, unspecified; Z88.1 Allergy status to other antibiotic agents; L27.0 Generalized skin eruption due to drugs and medicaments taken internally; T36.0X5A Adverse effect of penicillins, initial encounter; T36.8X5A Adverse effect of other systemic antibiotics, initial encounter; B95.2 Enterococcus as the cause of diseases classified elsewhere; B96.1 Klebsiella pneumoniae [K. pneumoniae] as the cause of diseases classified elsewhere; E11.40 Type 2 diabetes mellitus with diabetic neuropathy, unspecified; Z16.22 Resistance to vancomycin related antibiotics; Z16.39 Resistance to other specified antimicrobial drug
CPT/HCPCS: 36415; 80048; 80053; 81003; 82962; 83690; 83735; 84100; 84484; 85025; 85610; 85730; 86360; 87081; 87086; 87181; 93005; 99285; J2405